=== PATIENT | male | born 1970 | race Caucasian/White ===

== ENCOUNTER 2016-06-27 10:51 | Emergency (ER) | payer OTHER ==
[~2016-06-27] VITALS: Ht 177.8 cm; Wt 71.5 kg
[~2016-06-27 10:51] MED LIST: BACT800T5 PO; HYDR-3534 PO
[2016-06-27 10:56] VITALS: BP 116/90; PULSE 102; RESP 16; TEMP 97.9; O2SAT 97
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
[2016-06-27] MEDS ORDERED: NAPR500T PO (12:31)
[2016-06-27] MEDS ORDERED: ROBA750T PO (12:31)
[2016-07-28] MEDS ORDERED: AMLO10TA2 PO (16:35)
[2016-07-28] MEDS ORDERED: CIPR-9 PO (16:45)
== END 2016-06-27 12:52 | disposition home or self-care (01) ==
LOC: PHEFT 10:51
DX: S20.211A Contusion of right front wall of thorax, initial encounter (principal); M25.461 Effusion, right knee; M25.561 Pain in right knee; F17.210 Nicotine dependence, cigarettes, uncomplicated; F10.10 Alcohol abuse, uncomplicated; Y35.93XA Legal intervention, means unspecified, suspect injured, initial encounter
CPT/HCPCS: 71101; 73564; 94150; 99283; E0113; L1830

== ENCOUNTER 2016-07-13 09:08 | Emergency (ER) | payer OTHER ==
[~2016-07-13] VITALS: Ht 177.8 cm; Wt 69.3 kg
[~2016-07-13 09:08] MED LIST changes: -BACT800T5 PO; -HYDR-3534 PO; +NAPR500T PO; +ROBA750T PO
[2016-07-13 09:21] VITALS: BP 118/86; PULSE 117; RESP 16; TEMP 98.3; O2SAT 98
[2016-07-13 10:00] VITALS: O2SAT 98
[2016-07-13] MEDS ORDERED: TETANUS/DIPHTHERIA TOXOID ADULT 0.5 ML VIAL IM ONE (10:15)
[2016-07-13] MEDS ORDERED: HYDROmorphone HCL PF 1 MG/ML VIAL IV PUSH ONE (10:15)
[2016-07-13] MEDS ORDERED: VANCOMYCIN INJ 1,050 MG in SODIUM CHLOR 0.9% 250 ML INJ 250 ML IV ONE (10:15)
[2016-07-13] MEDS ORDERED: SODIUM CHLOR 0.9% 1000 ML INJ 1,000 ML IV ONE (10:15)
[2016-07-13 10:32] LABS: AUTOMATED NEUTROPHIL # 12.8 TH/MM3 (1.8-7.7); BASOPHIL # 0.3 TH/MM3 (0-0.2); BASOPHIL % 1.7 % (0.0-2.0); EOSINOPHIL # 0.1 TH/MM3 (0-0.4); EOSINOPHIL % 0.6 % (0.0-4.0); HEMATOCRIT 44.1 % (39.0-51.0); LYMPH % 7.8 % (9.0-44.0); LYMPHOCYTE # 1.2 TH/MM3 (1.0-4.8); MEAN CELL VOLUME 93.3 FL (80.0-100.0); MEAN CORPUSCULAR HEMOGLOBIN 31.2 PG (27.0-34.0); MEAN CORPUSCULAR HGB CONC 33.4 % (32.0-36.0); MONO % 9.4 % (0.0-8.0); NEUT % 80.5 % (16.0-70.0); PLATELET COUNT 194 TH/MM3 (150-450); RED BLOOD COUNT 4.72 MIL/MM3 (4.50-5.90); RED CELL DISTRIBUTION WIDTH 12.9 % (11.6-17.2); WHITE BLOOD COUNT 15.9 TH/MM3 (4.0-11.0)
[2016-07-13 10:40] LABS: HEMO FLAGS DIFF FINAL
[2016-07-13 10:41] LABS: CHLORIDE 104 MEQ/L (98-107); SODIUM (NA) 140 MEQ/L (136-145)
[2016-07-13 10:45] LABS: ANION GAP 9 MEQ/L (5-15); BICARBONATE 27.2 MEQ/L (21.0-32.0); BLOOD UREA NITROGEN 13 MG/DL (7-18)
[2016-07-13 10:48] LABS: ALT (GPT) 14 U/L (12-78); AST (GOT) 21 U/L (15-37); GLOMERULAR FILTRATION RATE 73 ML/MIN (>89)
[2016-07-13 10:50] LABS: TOTAL BILIRUBIN ADULT 0.6 MG/DL (0.2-1.0)
[2016-07-13 10:51] LABS: ALKALINE PHOSPHATASE 64 U/L (45-117)
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
--- NOTE | 2016-07-13 10:57 | RADHPO ---
EXAM DATE/TIME: 07/13/2016 10:13 [facility] COMPARISON: No previous studies available for comparison. INDICATIONS : Right foot pain and swelling, laceration on 5th digit, dropped a door on foot. MEDICAL HISTORY : None. SURGICAL HISTORY : None. ENCOUNTER: Initial ACUITY: 4 - 6 days PAIN SCORE: 4/10 LOCATION: Right foot FINDINGS: Minimal soft tissue swelling is evident with the lateral side of the foot. There is no foreign body or fracture.. The calcaneus is intact. Bony mineralization is normal. CONCLUSION: Negative for fracture, minimal soft tissue swelling. Gaston Sagastume MD FACR on July 13, 2016 at 10:54 Board Certified Radiologist. This report was verified electronically.
--- NOTE | 2016-07-13 10:58 | RADHPO ---
EXAM DATE/TIME: 07/13/2016 10:14 [facility] COMPARISON: No previous studies available for comparison. INDICATIONS : Foreign body, stepped on glass yesterday, lateral side of left foot. MEDICAL HISTORY : None. SURGICAL HISTORY : None. ENCOUNTER: Initial ACUITY: 2 days PAIN SCORE: 3/10 LOCATION: Left lateral foot FINDINGS: There is no radiopaque foreign body or fracture identified. CONCLUSION: Negative for fracture or foreign body. Glass can be radiolucent. Gaston Sagastume MD FACR on July 13, 2016 at 10:56 Board Certified Radiologist. This report was verified electronically.
[2016-07-13 11:57] VITALS: BP 106/71; PULSE 74; RESP 16; O2SAT 100
[2016-07-28] MEDS ORDERED: AMLO10TA2 PO (16:35)
[2016-07-28] MEDS ORDERED: CIPR-9 PO (16:45)
== END 2016-07-13 12:37 | disposition home or self-care (01) ==
LOC: PHED 09:08
DX: L03.115 Cellulitis of right lower limb (principal); S91.311A Laceration without foreign body, right foot, initial encounter; F17.210 Nicotine dependence, cigarettes, uncomplicated; W20.8XXA Other cause of strike by thrown, projected or falling object, initial encounter; Y93.9 Activity, unspecified; Y92.9 Unspecified place or not applicable; R00.0 Tachycardia, unspecified
CPT/HCPCS: 73620; 80053; 83605; 85025; 87040; 96361; 96365; 96375; 99285; J1170; J3370; J7030; J7050

== ENCOUNTER 2016-07-13 18:34 | Inpatient (IN) | payer OTHER ==
[~2016-07-13] VITALS: Ht 177.8 cm; Wt 76.4 kg
[2016-07-13 18:38] VITALS: BP 125/74; PULSE 130; RESP 20; TEMP 99.1; O2SAT 95
[2016-07-13] MEDS ORDERED: SODIUM CHLOR 0.9% 1000 ML INJ 1,000 ML IV ONE ×2 (23:00)
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
[2016-07-13 23:19] VITALS: BP 117/55; PULSE 103; RESP 20; TEMP 99.9; O2SAT 96
[2016-07-13] MEDS: PIPERACIL-TAZO 4.5 GM PREMIX 100 ML IV SCH (23:38)
[2016-07-14] MEDS ORDERED: ONDANSETRON HCL 4 MG/2 ML VIAL IV PUSH ONE
[2016-07-14] MEDS ORDERED: IBUPROFEN 600 MG TAB PO ONE
[2016-07-14] MEDS ORDERED: MORPHINE SULFATE 4 MG/ML INJ IV PUSH ONE
[2016-07-14 00:13] LABS: AUTOMATED NEUTROPHIL # 14.6 TH/MM3 (1.8-7.7); BASOPHIL # 0.1 TH/MM3 (0-0.2); BASOPHIL % 0.3 % (0.0-2.0); EOSINOPHIL % 0.2 % (0.0-4.0); HEMATOCRIT 36.4 % (39.0-51.0); HEMO FLAGS DIFF FINAL; LYMPH % 5.5 % (9.0-44.0); LYMPHOCYTE # 0.9 TH/MM3 (1.0-4.8); MEAN CELL VOLUME 91.4 FL (80.0-100.0); MEAN CORPUSCULAR HEMOGLOBIN 31.7 PG (27.0-34.0); MEAN CORPUSCULAR HGB CONC 34.6 % (32.0-36.0); MONO % 8.5 % (0.0-8.0); NEUT % 85.5 % (16.0-70.0); PLATELET COUNT 167 TH/MM3 (150-450); RED BLOOD COUNT 3.98 MIL/MM3 (4.50-5.90); RED CELL DISTRIBUTION WIDTH 12.8 % (11.6-17.2); WHITE BLOOD COUNT 17.1 TH/MM3 (4.0-11.0)
[2016-07-14] MEDS: VANCOMYCIN INJ 1,500 MG in SODIUM CHLORID 0.9% 500 ML INJ 500 ML IV SCH ×3 (01:40→22:19)
[2016-07-14] MEDS ORDERED: LORazepam 2 MG TAB PO PRN (01:45)
[2016-07-14] MEDS ORDERED: FLUMAZENIL 0.5 MG/5 ML VIAL IV PUSH PRN (01:45)
[2016-07-14] MEDS ORDERED: LORazepam 1 MG TAB PO PRN (01:45)
[2016-07-14] MEDS ORDERED: SODIUM CHLORIDE 0.9% FLUSH 5 ML FLUSH FLUSH PRN (01:45)
[2016-07-14] MEDS ORDERED: LORazepam 2 MG/ML VIAL IV PUSH PRN ×4 (01:45)
[2016-07-14] MEDS ORDERED: Vancomycin Consult Pharmacy 1 EA OTHER SCH (01:45)
[2016-07-14] MEDS ORDERED: NALOXONE HCL 0.4 MG/ML AMP IV PRN (01:45)
[2016-07-14] MEDS ORDERED: SENNOSIDES 8.6 MG TAB PO PRN (01:45)
[2016-07-14] MEDS ORDERED: ONDANSETRON HCL 4 MG/2 ML VIAL IVP PRN (01:45)
[2016-07-14] MEDS ORDERED: ACETAMINOPHEN 325 MG TAB PO PRN ×2 (01:45)
--- NOTE | 2016-07-14 01:50 | HHI.HP ---
[facility] No Primary Care Physician Admission Diagnosis right foot and lower leg cellulitis Diagnoses: Chief Complaint: Foot pain/ swelling Travel History International Travel<30 Days: No Contact w/Intl Traveler <30 Da: No Traveled to Known Affected Are: No Sepsis Criteria SIRS Criteria (2 or more): Heart rate over 90, WBC > 51337, < 4000 or > 10% bands Sepsis Criteria (SIRS+source): Infect source susp/known Criteria Outcome: Meets sepsis criteria History of Present Illness The patient is a 45-year-old male with a history of alcohol abuse who presented to the hospital with right foot swelling for the past 4 days. He says that about 4 days ago he was carrying a door and then dropped it on his foot. He was wearing flip-flops at that time. He had significant pain that he described as a burning sensation in that foot. At first it started as swelling and pain in between his pinky toe and the adjacent toe but he said over the past few days it has started to spread to involve all toes and started traveling up the benson. He has noted pus leaking from the wound that he describes as red and white in color. 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 He's noticed a fever as high as 99. He has had some associated nausea with the fevers. He went to the [facility] earlier in the day and decided to leave the hospital because he had to return a bike to somebody. He says his foot feels better when he has it elevated. He has been ambulating with crutches or just hopping along if he didn't have the crutches. Review of Systems Constitutional: COMPLAINS OF: Fever Cardiovascular: COMPLAINS OF: Lower Extremity Edema Gastrointestinal: COMPLAINS OF: Diarrhea, Nausea Musculoskeletal: COMPLAINS OF: Joint pain, Muscle aches, Joint Swelling Integumentary: COMPLAINS OF: Abnormal pigmentation, Rash Hematologic/lymphatic: COMPLAINS OF: Bruising, Lymphadenopathy Neurologic: COMPLAINS OF: Abnormal gait, Paresthesias, Poor Balance Past Family Social History Past Medical History Alcohol abuse Allergies: Coded Allergies: No Known Allergies (Verified , 07/13/16) Active Ordered Medications Current Medications Medications (Trade) Dose Ordered Sig/Angella Route Start Time Stop Time Status Last Admin Vancomycin HCl 1500 mg/Sodium Chloride 515 ml @ 257.5 mls/ hr Q12H IV 07/13/16 23:00 07/14/16 01:40 Piperacillin Sod/ Tazobactam Sod 100 ml @ 200 mls/hr Q6H IV 07/13/16 23:00 07/13/16 23:38 Pharmacy Profile Note 0 ml @ 0 mls/hr UNSCH OTHER 07/14/16 01:45 UNV (NS 1000 ml Inj) 1,000 ml @ 100 mls/hr Q10H IV 07/14/16 01:34 07/14/16 21:33 UNV (NS Flush) 2 ml UNSCH PRN FLUSH 07/14/16 01:45 UNV (NS Flush) 2 ml BID FLUSH 07/14/16 09:00 UNV (Tylenol) 650 mg Q4H PRN PO 07/14/16 01:45 UNV (Zofran Inj) 4 mg Q6H PRN IVP 07/14/16 01:45 UNV (Colace) 100 mg Q12H PO 07/14/16 01:45 UNV (Senokot) 17.2 mg Q12H PRN PO 07/14/16 01:45 UNV (Lovenox Inj) 40 mg Q24H SQ 07/14/16 01:45 UNV (Tylenol) 650 mg Q6H PRN PO 07/14/16 01:45 UNV (Roxicodone) 10 mg Q4H PRN PO 07/14/16 01:45 UNV (Morphine Inj) 4 mg Q1H PRN IV 07/14/16 01:45 UNV (Roxicodone) 5 mg Q4H PRN PO 07/14/16 01:45 UNV (Narcan Inj) 0.4 mg UNSCH PRN IV 07/14/16 01:45 UNV (Romazicon Inj) 0.2 mg Q1M PRN IV PUSH 07/14/16 01:45 07/14/16 01:50 UNV (Ativan) 1 mg Q4H PRN PO 07/14/16 01:45 UNV (Ativan Inj) 1 mg Q4H PRN IV PUSH 07/14/16 01:45 UNV (Ativan) 2 mg Q2H PRN PO 07/14/16 01:45 UNV (Ativan Inj) 2 mg Q2H PRN IV PUSH 07/14/16 01:45 UNV (Ativan Inj) 2 mg Q1H PRN IV PUSH 07/14/16 01:45 UNV (Ativan Inj) 2 mg Q15M PRN IV PUSH 07/14/16 01:45 UNV (Vitamin B1) 100 mg DAILY PO 07/14/16 09:00 UNV Family History CAD Colon cancer Social History The patient smokes one pack per day. He binge drinks from time to time, last drink 2-3 days ago. He smokes marijuana daily. Physical Exam Vital Signs Vital Signs Date Time Temp Pulse Resp B/P Pulse Ox O2 Delivery O2 Flow Rate FiO2 07/13/16 23:19 99.9 103 20 117/55 96 Room Air 07/13/16 18:38 99.1 130 20 125/74 95 Room Air Physical Exam GENERAL: Well-developed, well-nourished in no apparent distress. HEAD: Normocephalic, atraumatic. EYES: Pupils equal round and reactive. Extraocular motions intact. No scleral icterus. No injection or drainage. ENT: Nose clear. Throat without erythema, tonsillar hypertrophy or exudate. Uvula midline. Airway patent. NECK: Trachea midline. Supple, nontender, moves head freely. No central bony tenderness or spasm. CARDIOVASCULAR: Regular rate and rhythm without murmurs, gallops, or rubs. RESPIRATORY: Clear to auscultation. Breath sounds equal bilaterally. No wheezes , rales, or rhonchi. GASTROINTESTINAL: Abdomen soft, non-tender, nondistended. No hepato-splenomegaly , or palpable masses. No guarding. EXTREMITIES: Examination of the right lower extremity reveals moderate swelling of the right foot up into the calf. The foot is red, warm and tender. There is a large area of erythema which is circled by marker to the forefoot. There is also bruising of the forefoot. This extends up the leg. There is a open draining laceration between the fourth and fifth toes. BACK: Nontender without deformity. No flank tenderness. NEUROLOGICAL: Awake, alert and oriented x 3 .Cranial nerves grossly intact. Motor and sensory grossly within normal limits. Normal speech. PSYCH: Mood and affect appropriate. Laboratory Laboratory Tests Test 07/13/16 23:40 White Blood Count 17.1 Red Blood Count 3.98 Hemoglobin 12.6 Hematocrit 36.4 Mean Corpuscular Volume 91.4 Mean Corpuscular Hemoglobin 31.7 Mean Corpuscular Hemoglobin 34.6 Concent Red Cell Distribution Width 12.8 Platelet Count 167 Mean Platelet Volume 8.3 Neutrophils (%) (Auto) 85.5 Lymphocytes (%) (Auto) 5.5 Monocytes (%) (Auto) 8.5 Eosinophils (%) (Auto) 0.2 Basophils (%) (Auto) 0.3 Neutrophils # (Auto) 14.6 Lymphocytes # (Auto) 0.9 Monocytes # (Auto) 1.5 Eosinophils # (Auto) 0.0 Basophils # (Auto) 0.1 CBC Comment DIFF FINAL Differential Comment Lactic Acid Level 0.7 Date/Time Procedure Status Source Growth 07/13/16 23:40 Gram Stain Received Wound Foot Pending 07/13/16 23:40 Wound Culture Received Wound Foot Pending Result Diagram: 07/13/16 2340 Assessment and Plan Assessment and Plan Sepsis S/t cellulitis of the RLE following an injury where a door fell on his foot. - continue vancomycin. - wound culture and gram stain, blood cultures x 2. - pain control with a bowel regimen. - if does not continue to improve would obtain MRI of right foot for further evaluation. - IVFs. - physical therapy. Alcohol abuse The pt says he tends to binge from time to time. Last drink 2-3 days prior to admission. - [facility] protocol. - seizure precautions. - thiamine. Nicotine abuse The pt smokes 1 PPD. He says he is not yet ready to quit. - cessation instruction. - nicotine patch if needed. Tachycardia Likely s/t pain. - pain control as needed. PPx: Lovenox. Code Status Full. Discussed Condition With Pt, Maynor Pickens. Physician Certification 2 Midnight Certification Type: Admission for Inpatient Services Order for Inpatient Services The services are ordered in accordance with Medicare regulations or non- Medicare payer requirements, as applicable. In the case of services not specified as inpatient-only, they are appropriately provided as inpatient services in accordance with the 2-midnight benchmark. Estimated LOS (days): 2 days is the estimated time the patient will need to remain in the hospital, assuming treatment plan goals are met and no additional complications. Post-Hospital Plan: Home Kamran Phoenix DO Jul 14, 2016 01:50
[2016-07-14 02:13] VITALS: BP 109/61; PULSE 95; RESP 20; TEMP 99.7; O2SAT 96
[2016-07-14] MEDS: DOCUSATE SODIUM 100 MG CAP PO SCH ×2 (03:25→13:45)
[2016-07-14] MEDS: ENOXAPARIN SODIUM 40 MG/0.4 ML SYRINGE SQ SCH (03:25)
[2016-07-14] MEDS: SODIUM CHLOR 0.9% 1000 ML INJ 1,000 ML IV SCH ×2 (03:26→11:34)
[2016-07-14 05:35] LABS: AUTOMATED NEUTROPHIL # 11.5 TH/MM3 (1.8-7.7); BASOPHIL % 0.4 % (0.0-2.0); EOSINOPHIL # 0.1 TH/MM3 (0-0.4); EOSINOPHIL % 0.6 % (0.0-4.0); HEMATOCRIT 33.5 % (39.0-51.0); HEMO FLAGS DIFF FINAL; LYMPH % 9.6 % (9.0-44.0); LYMPHOCYTE # 1.4 TH/MM3 (1.0-4.8); MEAN CELL VOLUME 92.5 FL (80.0-100.0); MEAN CORPUSCULAR HEMOGLOBIN 31.1 PG (27.0-34.0); MEAN CORPUSCULAR HGB CONC 33.7 % (32.0-36.0); MONO % 8.5 % (0.0-8.0); NEUT % 80.9 % (16.0-70.0); PLATELET COUNT 153 TH/MM3 (150-450); RED BLOOD COUNT 3.62 MIL/MM3 (4.50-5.90); RED CELL DISTRIBUTION WIDTH 13.1 % (11.6-17.2); WHITE BLOOD COUNT 14.2 TH/MM3 (4.0-11.0)
[2016-07-14] MEDS: PIPERACIL-TAZO 4.5 GM PREMIX 100 ML IV SCH ×4 (05:37→22:15)
[2016-07-14 06:24] LABS: BICARBONATE 24.3 MEQ/L (21.0-32.0); POTASSIUM 3.5 MEQ/L (3.5-5.1)
[2016-07-14 06:36] VITALS: BP 102/64; PULSE 71; RESP 20; TEMP 98; O2SAT 96
--- NOTE | 2016-07-14 07:42 | PD.CONS ---
History of Present Illness Service Podiatry Consult Requested By ED Reason for Consult cellulitis R foot/leg Primary Care Physician No Primary Care Physician Diagnoses: History of Present Illness 45-year-old male dropped door on foot 4 days ago and has had R foot swelling and pain. He says he was wearing flip flops and has wound with drainage. He states he has spiked a low grade fever with mild nausea. He has tried to stay off the foot with crutches due to pain. Past Family Social History Allergies: Coded Allergies: No Known Allergies (Verified , 07/13/16) Past Medical History Alcohol abuse, smoker Active Ordered Medications Current Medications Medications (Trade) Dose Ordered Sig/Angella Route Start Time Stop Time Status Last Admin Vancomycin HCl 1500 mg/Sodium Chloride 515 ml @ 257.5 mls/ hr Q12H IV 07/13/16 23:00 07/14/16 01:40 Piperacillin Sod/ Tazobactam Sod 100 ml @ 200 mls/hr Q6H IV 07/13/16 23:00 07/14/16 05:37 Pharmacy Profile Note 0 ml @ 0 mls/hr UNSCH OTHER 07/14/16 01:45 (NS 1000 ml Inj) 1,000 ml @ 100 mls/hr Q10H IV 07/14/16 01:34 07/14/16 21:33 07/14/16 03:26 (NS Flush) 2 ml UNSCH PRN FLUSH 07/14/16 01:45 (NS Flush) 2 ml BID FLUSH 07/14/16 09:00 (Tylenol) 650 mg Q4H PRN PO 07/14/16 01:45 (Zofran Inj) 4 mg Q6H PRN IVP 07/14/16 01:45 (Colace) 100 mg Q12H PO 07/14/16 01:45 07/14/16 03:25 (Senokot) 17.2 mg Q12H PRN PO 07/14/16 01:45 (Lovenox Inj) 40 mg Q24H SQ 07/14/16 02:00 07/14/16 03:25 (Tylenol) 650 mg Q6H PRN PO 07/14/16 01:45 (Roxicodone) 10 mg Q4H PRN PO 07/14/16 01:45 07/14/16 06:51 (Morphine Inj) 4 mg Q1H PRN IV 07/14/16 01:45 (Roxicodone) 5 mg Q4H PRN PO 07/14/16 01:45 (Narcan Inj) 0.4 mg UNSCH PRN IV 07/14/16 01:45 (Ativan) 1 mg Q4H PRN PO 07/14/16 01:45 (Ativan Inj) 1 mg Q4H PRN IV PUSH 07/14/16 01:45 (Ativan) 2 mg Q2H PRN PO 07/14/16 01:45 (Ativan Inj) 2 mg Q2H PRN IV PUSH 07/14/16 01:45 (Ativan Inj) 2 mg Q1H PRN IV PUSH 07/14/16 01:45 (Ativan Inj) 2 mg Q15M PRN IV PUSH 07/14/16 01:45 (Vitamin B1) 100 mg DAILY PO 07/14/16 09:00 Family History CAD Colon cancer Social History 1ppd smoker. Binge drinker, last drink 2-3 days ago. Smokes marijuana daily. Physical Exam Vital Signs Vital Signs Date Time Temp Pulse Resp B/P Pulse Ox O2 Delivery O2 Flow Rate FiO2 07/14/16 06:36 98.0 71 20 102/64 96 Room Air 07/14/16 02:13 99.7 95 20 109/61 96 Room Air 07/13/16 23:19 99.9 103 20 117/55 96 Room Air 07/13/16 18:38 99.1 130 20 125/74 95 Room Air Physical Exam R foot dorsally with ecchymosis and erythema across dorsum of foot. There is a small laceration between 4th/5th digits that appears into subQ tissue. No visible tendon/bone in wound. Copious serous drainage with small area of darkened tissue. Uncertain if ecchymotic or necrotic. Mild pain. Capillary refill present to digits. Palpable pedal pulses. No purulence noted. Laboratory Laboratory Tests Test 07/13/16 07/14/16 23:40 04:38 White Blood Count 17.1 14.2 Red Blood Count 3.98 3.62 Hemoglobin 12.6 11.3 Hematocrit 36.4 33.5 Mean Corpuscular Volume 91.4 92.5 Mean Corpuscular Hemoglobin 31.7 31.1 Mean Corpuscular Hemoglobin 34.6 33.7 Concent Red Cell Distribution Width 12.8 13.1 Platelet Count 167 153 Mean Platelet Volume 8.3 8.1 Neutrophils (%) (Auto) 85.5 80.9 Lymphocytes (%) (Auto) 5.5 9.6 Monocytes (%) (Auto) 8.5 8.5 Eosinophils (%) (Auto) 0.2 0.6 Basophils (%) (Auto) 0.3 0.4 Neutrophils # (Auto) 14.6 11.5 Lymphocytes # (Auto) 0.9 1.4 Monocytes # (Auto) 1.5 1.2 Eosinophils # (Auto) 0.0 0.1 Basophils # (Auto) 0.1 0.0 CBC Comment DIFF FINAL DIFF FINAL Differential Comment Lactic Acid Level 0.7 Sodium Level 139 Potassium Level 3.5 Chloride Level 105 Carbon Dioxide Level 24.3 Anion Gap 10 Blood Urea Nitrogen 9 Creatinine 1.06 Estimat Glomerular Filtration 76 Rate Random Glucose 113 Calcium Level 7.2 Protein Corrected Calcium 8.0 Total Protein 5.6 Date/Time Procedure Status Source Growth 07/13/16 23:40 Gram Stain Received Wound Foot Pending 07/13/16 23:40 Wound Culture Received Wound Foot Pending Result Diagram: 07/14/16 0438 07/14/168 Imaging No imaging performed at this time. Uncertain why Ordering foot xr Assessment and Plan Assessment and Plan Cellulitis R foot/leg XR R foot pending Ordering MRI stat R foot with and without contrast Continue IV antibiotics Discussed with patient he could have an underlying injury to his foot causing bruising in addition to overlying skin laceration and MRI will assist in determining severity of wound Will plan to debride wound bedside this evening. Continue betadine wet to dry dressing R foot in meantime. Jorge Valentine DPM Jul 14, 2016 07:42
--- NOTE | 2016-07-14 08:34 | RADRPT ---
EXAM DATE/TIME: 07/14/2016 07:59 [facility] COMPARISON: FOOT RIGHT LIMITED (2VWS), July 13, 2016, 10:13. INDICATIONS : Right foot pain after dropping a wooden door on foot. MEDICAL HISTORY : Smoker. SURGICAL HISTORY : None. ENCOUNTER: Initial ACUITY: 4 - 6 days PAIN SCORE: 6/10 LOCATION: Right entire foot. FINDINGS: Three views of the right foot demonstrate no fracture or dislocation. The Lisfranc joint appears inta ct. Mineralization is within normal limits and there is no significant arthropathy. No radiopaque for eign body is identified. There is marked soft tissue swelling on the dorsal aspect of the foot that i s stable to slightly increased from yesterday. CONCLUSION: Marked dorsal foot soft tissue swelling. However, no fracture is visualized. Lusi Mistry MD on July 14, 2016 at 8:30 Board Certified Radiologist. This report was verified electronically.
[2016-07-14] MEDS: THIAMINE HCL 100 MG TAB PO SCH (09:48)
[2016-07-14] MEDS: SODIUM CHLORIDE 0.9% FLUSH 5 ML FLUSH FLUSH SCH ×2 (09:48→22:04)
[2016-07-14] MEDS ORDERED: GADODIAMIDE PF 287 MG/ML 5 ML VIAL (for RAD MRI) IV ONE (11:26)
--- NOTE | 2016-07-14 12:40 | RADRPT ---
EXAM DATE/TIME: 07/14/2016 10:54 [facility] COMPARISON: FOOT RIGHT COMPLETE ([id number]), July 14, 2016, 7:59. INDICATIONS : Abscess. CONTRAST: 15 cc Omniscan (gadodiamide) IV MEDICAL HISTORY : None. SURGICAL HISTORY : None. ENCOUNTER: Initial ACUITY: 3 day PAIN SCORE: 5/10 LOCATION: Right foot TECHNIQUE: Multiplanar, multisequence MRI examination was performed without contrast and after the intravenous a dministration of gadolinium. FINDINGS: There is diffuse subcutaneous edema and swelling of the right midfoot and forefoot. An irregular flui d collection is seen dorsally of the lateral midfoot, measures roughly 10 x 27 mm in greater short ax is dimension and 29 mm proximal to distal. It is primarily subcutaneous but has a focal tongue extend ing into the dorsal aspect of the fourth interspace area at the level of the proximal phalanges of th e fourth and fifth toes. Dorsally, the superficial margin of the fluid collection is about 3 mm benea th the skin. No perceptible foreign body. There are no signal changes of the osseous structures of th e right foot to suggest osteomyelitis. CONCLUSION: Irregular abscess dorsal to the distal fourth and fifth metatarsals and with a tongue extending into the fourth interspace. Please see above. There is a surrounding broad area of cellulitis of the midfo ot and forefoot. No evidence of osteomyelitis. Luis Ballesteros MD on July 14, 2016 at 12:31 Board Certified Radiologist. This report was verified electronically.
[2016-07-14 18:15] VITALS: BP 151/78; PULSE 82; RESP 18; TEMP 96.2; O2SAT 96
[2016-07-14 20:00] VITALS: BP 127/74; PULSE 85; RESP 18; TEMP 99.3; O2SAT 93
[2016-07-15 01:00] VITALS: BP 123/76; PULSE 87; RESP 20; TEMP 98.6; O2SAT 95
[2016-07-15] MEDS: ENOXAPARIN SODIUM 40 MG/0.4 ML SYRINGE SQ SCH (03:24)
[2016-07-15] MEDS: DOCUSATE SODIUM 100 MG CAP PO SCH ×2 (03:24→13:12)
[2016-07-15 04:00] VITALS: BP 110/65; PULSE 79; RESP 18; TEMP 96.6; O2SAT 91
[2016-07-15] MEDS: PIPERACIL-TAZO 4.5 GM PREMIX 100 ML IV SCH ×2 (05:12→11:00)
[2016-07-15 08:00] VITALS: BP 100/61; PULSE 63; RESP 18; TEMP 97.2; O2SAT 93
[2016-07-15] MEDS: THIAMINE HCL 100 MG TAB PO SCH (08:39)
[2016-07-15] MEDS: SODIUM CHLORIDE 0.9% FLUSH 5 ML FLUSH FLUSH SCH ×2 (08:39→20:51)
--- NOTE | 2016-07-15 10:04 | HHI.PR ---
Subjective Remarks Follow up on right lower extremity and foot cellulitis Patient does not think his right leg cellulitis yet improved enough today, felt feverish this morning No nausea or vomiting, will continue on antibiotic, podiatry for further surgical debridement Objective Vitals Vital Signs Date Time Temp Pulse Resp B/P Pulse Ox O2 Delivery O2 Flow Rate FiO2 07/15/16 08:00 97.2 63 18 100/61 93 07/15/16 05:13 16 07/15/16 04:00 96.6 79 18 110/65 91 07/15/16 01:00 98.6 87 20 123/76 95 07/14/16 23:25 16 07/14/16 20:00 99.3 85 18 127/74 93 07/14/16 18:15 96.2 82 18 151/78 96 I/O 07/14/16 07/14/16 07/14/16 07/15/16 07/15/16 07/15/16 07:00 15:00 23:00 07:00 15:00 23:00 Intake Total 100 ml 1677 ml 1234 ml Output Total 200 ml Balance 100 ml 1677 ml 1034 ml Intake Oral 100 ml IV Total 1677 ml 1234 ml Output Urine Total 200 ml Result Diagram: 07/14/16 0438 07/14/16 0438 Imaging Last Impressions Foot MRI 07/14/16 0904 Signed Impressions: Service Date/Time: Thursday, July 14, 2016 10:54 - CONCLUSION: Irregular abscess dorsal to the distal fourth and fifth metatarsals and with a tongue extending into the fourth interspace. Please see above. There is a surrounding broad area of cellulitis of the midfoot and forefoot. No evidence of osteomyelitis. Luis Ballesteros MD Foot X-Ray 07/14/16 0000 Signed Impressions: Service Date/Time: Thursday, July 14, 2016 07:59 - CONCLUSION: Marked dorsal foot soft tissue swelling. However, no fracture is visualized. Luis Mistry MD Objective Remarks GENERAL: This is a well-nourished, well-developed patient, in no apparent distress. SKIN: No rashes, warm and dry HEAD: Atraumatic. Normocephalic. EYES: Pupils equal round and reactive. Extraocular motions intact. No scleral icterus. ENT: Nose without bleeding, or drainage, Airway patent. NECK: Trachea midline. Supple CARDIOVASCULAR: Regular rate and rhythm without murmurs, gallops, or rubs. RESPIRATORY: Fair air entry bilaterally. No wheezes, rales, or rhonchi. GASTROINTESTINAL: Abdomen soft, non-tender, nondistended. Positive bowel sounds MUSCULOSKELETAL: Lower extremity with edema and tenderness, right foot in gauze NEUROLOGICAL: Awake and alert. Moves all extremity. Normal speech.no focal neurological deficit A/P Assessment and Plan Sepsis S/t cellulitis of the RLE following an injury where a door fell on his foot. - continue vancomycin and Zosyn, consider infectious disease consultation if no significant improvement - wound culture and gram stain, blood cultures x 2. - pain control with a bowel regimen. -Consult podiatry, surgical debridement of the foot, - MRI of right foot Irregular abscess dorsal to the distal fourth and fifth metatarsals and with a tongue extending into the fourth interspace - IVFs. - physical therapy. Alcohol abuse The pt says he tends to binge from time to time. Last drink 2-3 days prior to admission. - [facility] protocol. - seizure precautions. - thiamine. Nicotine abuse The pt smokes 1 PPD. He says he is not yet ready to quit. - cessation instruction. - nicotine patch if needed. Tachycardia Likely s/t pain. - pain control as needed. PPx: Lovenox. Meka Devine MD Jul 15, 2016 10:03
[2016-07-15] MEDS: CALCIUM CARBONATE 500 MG CHEWABLE TAB CHEW SCH ×2 (10:29→20:51)
[2016-07-15] MEDS ORDERED: PHARMACY ORDERED LAB XX ONE (10:45)
[2016-07-15] MEDS ORDERED: PROPOFOL 200 MG/20 ML AMP IV ONE (11:00)
[2016-07-15] MEDS: VANCOMYCIN INJ 1,500 MG in SODIUM CHLORID 0.9% 500 ML INJ 500 ML IV SCH (11:00)
[2016-07-15] MEDS ORDERED: ONDANSETRON HCL 4 MG/2 ML VIAL IV PUSH ONE (11:00)
[2016-07-15] MEDS ORDERED: NEOSTIGMINE METHYLSULFATE 10 MG/10 ML VIAL IV PUSH ONE (11:00)
[2016-07-15] MEDS ORDERED: METOPROLOL TARTRATE 25 MG TAB PO PRN (12:00)
[2016-07-15] MEDS ORDERED: SODIUM CHLORID 0.9% 500 ML IV SCH (12:00)
[2016-07-15] MEDS ORDERED: LACTATED RINGER'S 1000 ML IV SCH (12:00)
[2016-07-15] MEDS ORDERED: INSULIN HUMAN REGULAR 1,000 UNITS/10 ML VIAL SQ PRN (12:00)
[2016-07-15 12:22] VITALS: BP 118/73; PULSE 69; RESP 20; TEMP 96.7; O2SAT 95
[2016-07-15 12:43] LABS: BICARBONATE 13.8 MEQ/L (21.0-32.0)
[2016-07-15 16:27] VITALS: BP 135/81; PULSE 70; RESP 20; TEMP 99.7; O2SAT 95
[2016-07-15] MEDS: PIPERACIL-TAZO 2.25 GM PREMIX 50 ML IV SCH ×2 (17:49→23:13)
[2016-07-15 20:28] VITALS: BP 147/79; PULSE 94; RESP 20; TEMP 99.5; O2SAT 92
[2016-07-15] MEDS ORDERED: GENTAMICIN SULFATE 80 MG/2 ML VIAL ONE (20:35)
[2016-07-15] MEDS ORDERED: LIDOCAINE HCL 2% 50 ML VIAL ONE (20:35)
[2016-07-15] MEDS ORDERED: MEPERIDINE HCL 25 MG/ML VIAL ONE (21:35)
[2016-07-15] MEDS ORDERED: DO NOT ADM ANY ANTICOAGULANT DRUGS XX PRN ×2 (21:37→22:00)
--- NOTE | 2016-07-15 21:37 | HHI.PR ---
Immediate Post Op Note Procedure Date: Jul 15, 2016 Pre Op Diagnosis: Abscess R foot Post Op Diagnosis: Same Surgeon: Jorge Valentine DPM Platform Consultant(s): staff Procedure: incision and drainage of abscess right foot Findings: consistent with diagnosis. dorsal R 4th webspace open lesion with serous drainage and dorsal skin to 4th interspace area dark red, with erythema extending to mid-calf. hot to touch. palpable pulses. incision made from opening between 4th/5th digits proximally, and wound probed approximately 6cm. Incision continued to expose area of abscess. Drainage did not appear milky/white, but was clear/serous in appearance. #15, rongeur, and curettage utilized to debride the area. Tissue appears viable and bleeding. Irrigation with 6L NS + gentamicin. Packed open with xeroform, 4x4, abd x 2, cling, rere. WBAT R foot in surgical shoe ok. Likely back to OR this weekend. Culture taken prior to irrigation. Antibiotics pending culture Additional Information: no tourniquet utilized Complications: none Specimen(s) removed: culture R foot Estimated blood loss: 10mL Anesthesia: General Drains: None IVF Tourniquet time (min at mmHg) n/a Patient to: PACU Patient Condition: Good Date/Time of Procedure: SEE SURGICAL CARE RECORD Jorge Valentine DPM Jul 15, 2016 21:37
[2016-07-15] MEDS ORDERED: fentaNYL CITRATE 250 MCG/5 ML AMP ONE (21:41)
[2016-07-15] MEDS ORDERED: MIDAZOLAM HCL 2 MG/2 ML VIAL ONE (21:41)
[2016-07-15] MEDS ORDERED: MORPHINE SULFATE 4 MG/ML INJ ONE (21:42)
[2016-07-16 00:09] VITALS: BP 128/92; PULSE 104; RESP 20; TEMP 99; O2SAT 94
[2016-07-16] MEDS: DOCUSATE SODIUM 100 MG CAP PO SCH (01:45)
[2016-07-16] MEDS: MORPHINE SULFATE 4 MG/ML INJ IV PRN ×2 (02:14→05:07)
[2016-07-16] MEDS ORDERED: ENOXAPARIN SODIUM 30 MG/0.3 ML SYRINGE SQ SCH (03:00)
[2016-07-16 04:34] VITALS: BP 109/65; PULSE 62; RESP 20; TEMP 97.4; O2SAT 95
[2016-07-16] MEDS: PIPERACIL-TAZO 2.25 GM PREMIX 50 ML IV SCH (05:08)
[2016-07-16 07:45] LABS: BASOPHIL % 0.1 % (0.0-2.0); HEMO FLAGS DIFF FINAL; LYMPH % 2.4 % (9.0-44.0); LYMPHOCYTE # 0.5 TH/MM3 (1.0-4.8); MEAN CELL VOLUME 92.7 FL (80.0-100.0); MEAN CORPUSCULAR HEMOGLOBIN 31.9 PG (27.0-34.0); MEAN CORPUSCULAR HGB CONC 34.4 % (32.0-36.0); MONO % 4.5 % (0.0-8.0); PLATELET COUNT 157 TH/MM3 (150-450); RED BLOOD COUNT 3.45 MIL/MM3 (4.50-5.90); RED CELL DISTRIBUTION WIDTH 12.9 % (11.6-17.2); WHITE BLOOD COUNT 19.4 TH/MM3 (4.0-11.0)
[2016-07-16 08:14] LABS: BICARBONATE 17.9 MEQ/L (21.0-32.0); POTASSIUM 4.2 MEQ/L (3.5-5.1)
[2016-07-16 08:33] VITALS: BP 120/73; PULSE 74; RESP 20; TEMP 96.7; O2SAT 98
[2016-07-16] MEDS: THIAMINE HCL 100 MG TAB PO SCH (09:24)
[2016-07-16] MEDS: CALCIUM CARBONATE 500 MG CHEWABLE TAB CHEW SCH (09:24)
[2016-07-16] MEDS: SODIUM CHLORIDE 0.9% FLUSH 5 ML FLUSH FLUSH SCH (09:24)
--- NOTE | 2016-07-16 09:53 | HHI.PR ---
Subjective Remarks no events overnight. Patient wants to go home, left ama. Objective Vitals Vital Signs Date Time Temp Pulse Resp B/P Pulse Ox O2 Delivery O2 Flow Rate FiO2 07/16/16 08:33 96.7 74 20 120/73 98 07/16/16 05:12 18 07/16/16 04:34 97.4 62 20 109/65 95 07/16/16 00:12 18 07/16/16 00:09 99.0 104 20 128/92 94 07/15/16 22:00 98 16 134/75 89 Nasal Cannula 4 07/15/16 21:45 94 16 133/71 71 Nasal Cannula 4 07/15/16 21:30 99.2 105 20 151/91 99 Nasal Cannula 4 07/15/16 20:28 99.5 94 20 147/79 92 07/15/16 16:27 99.7 70 20 135/81 95 07/15/16 12:22 96.7 69 20 118/73 95 I/O 07/15/16 07/15/16 07/15/16 07/16/16 07/16/16 07/16/16 07:00 15:00 23:00 07:00 15:00 23:00 Intake Total 1234 ml 240 ml 1000 ml Output Total 200 ml 700 ml 15 ml Balance 1034 ml -460 ml 985 ml Intake Oral 240 ml IV Total 1234 ml 100 ml Other 900 ml Output Urine Total 200 ml 700 ml Estimated Blood Loss 15 ml # Voids 0 # Bowel Movements 0 0 Result Diagram: 07/16/16 0642 07/16/16 0642 Imaging Last Impressions Foot MRI 07/14/16 0904 Signed Impressions: Service Date/Time: Thursday, July 14, 2016 10:54 - CONCLUSION: Irregular abscess dorsal to the distal fourth and fifth metatarsals and with a tongue extending into the fourth interspace. Please see above. There is a surrounding broad area of cellulitis of the midfoot and forefoot. No evidence of osteomyelitis. Luis Ballesteros MD Foot X-Ray 07/14/16 0000 Signed Impressions: Service Date/Time: Thursday, July 14, 2016 07:59 - CONCLUSION: Marked dorsal foot soft tissue swelling. However, no fracture is visualized. Luis Mistry MD Objective Remarks GENERAL: This is a well-nourished, well-developed patient, in no apparent distress. SKIN: No rashes, warm and dry HEAD: Atraumatic. Normocephalic. EYES: Pupils equal round and reactive. Extraocular motions intact. No scleral icterus. ENT: Nose without bleeding, or drainage, Airway patent. NECK: Trachea midline. Supple CARDIOVASCULAR: Regular rate and rhythm without murmurs, gallops, or rubs. RESPIRATORY: Fair air entry bilaterally. No wheezes, rales, or rhonchi. GASTROINTESTINAL: Abdomen soft, non-tender, nondistended. Positive bowel sounds MUSCULOSKELETAL: Lower extremity with edema and tenderness, right foot in gauze NEUROLOGICAL: Awake and alert. Moves all extremity. Normal speech.no focal neurological deficit A/P Assessment and Plan Sepsis 2/2 cellulitis/abscess of the RLE following an injury where a door fell on his foot. S/P I&D by Dr Valentine 07/15/16 - continue Zosyn. Hold vanco 07/15 as noted ROBERTO, consult infectious disease - wound culture and gram stain with MRSA and strep gr B , blood cultures x 2 are NTD. - pain control with a bowel regimen. - Consult podiatry s/p surgical debridement of the foot - MRI of right foot Irregular abscess dorsal to the distal fourth and fifth metatarsals and with a tongue extending into the fourth interspace - IVFs. - physical therapy. Acute renal failure with elevated BUN/Cr 2/2 likely vancomycin. On IVF Cr worsened 08/16 at 5.7. Will consult nephrology. Monitor kidney function Alcohol abuse The pt says he tends to binge from time to time. Last drink 2-3 days prior to admission. - [place] protocol. - seizure precautions. - thiamine. Nicotine abuse The pt smokes 1 PPD. He says he is not yet ready to quit. - cessation instruction. - nicotine patch if needed. Tachycardia Likely s/t pain. - pain control as needed. PPx: Lovenox. DC plan DC when improved and cleared by consultants Note: Patient left AMA today Yesi Novak MD Jul 16, 2016 09:53
[2016-07-16] MEDS ORDERED: NALOXONE HCL 0.4 MG/ML AMP IV PRN (22:15)
[2016-07-16] MEDS ORDERED: SODIUM CHLORIDE 0.9% FLUSH 5 ML FLUSH FLUSH PRN (22:15)
[2016-07-17] MEDS ORDERED: SODIUM CHLORIDE 0.9% FLUSH 5 ML FLUSH FLUSH SCH (09:00)
--- NOTE | 2016-07-24 07:07 | MP ---
cc: JORGE LUNA DPM DATE OF SURGERY 07/15/2016 DATE OF 1970 INDICATIONS The patient presented to the emergency department with worsening infection to the dorsal aspect of the right foot. He stated that originally he had dropped a door corner on the side of his foot and had some how attained a small scratch that subsequently got infected over a few days. The appearance did not appear to go with his story. He has a history of alcoholism, bipolar disorder and other issues and was noted to have a significant infection to the dorsolateral aspect of the right foot with increasing erythema extending up to the mid calf area, hot to the touch and not improving with IV antibiotics. I discussed with the patient that in order to save his foot, he needed to undergo incision and drainage of the abscess in the right foot. The abscess was confirmed with MRI to the area of the right fourth web space consistent with clinical exam. The patient consented for surgery and was seen in preop holding by myself, nursing staff and Anesthesia where the correct patient side and site were all confirmed to be correct in the right foot. The right foot was prepped and draped in the normal sterile fashion followed by time-outs as per hospital protocol. Attention was then directed to the right dorsal aspect of the foot in the fourth interspace and webspace area was noted to have an opening between the fourth and fifth digits with purulent drainage coming from the area and was not milky white purulence, but more of a clear serous yellow discolored drainage from the area. Using a scissor, it did plunge in deeper between those toes into the fourth web space and the interspace areas. An incision was made dorsally approximately 6 cm between the fourth and fifth digits proximally across the dorsolateral aspect of the foot to expose the area of abscess and rongeur of any nonviable tissue. There was bleeding noted to the remaining tissues and this area was irrigated with 6 liters of normal saline plus gentamicin and packed open with Xeroform, 4x4s, ABD x2, Gustavo and Daniel bandage. The patient tolerated procedure and anesthesia well. I do anticipate he will require further surgery at least times one and will likely go back to the operating room this weekend. A culture was taken prior to irrigation and antibiotics will be pending culture. He went back to the PACU with vital signs stable and vascular status intact to the remainder of the right foot. He will be weightbearing as tolerated to the right foot in a surgical shoe with likely surgery in the coming days. SURGEON Jorge Luna MD PRINT DECORATOR Staff PREOPERATIVE DIAGNOSIS Abscess right foot POSTOPERATIVE DIAGNOSIS Abscess right foot PROCEDURE Incision and drainage of abscess right foot PATHOLOGY Culture right foot ANESTHESIA General endotracheal anesthesia. The patient did have a 30-second seizure while being inducted under anesthesia. ESTIMATED BLOOD LOSS 10 mL COMPLICATIONS Seizure during induction of anesthesia. DISPOSITION Likely surgery in the coming days due to severity of infection. Jorge DUPREE/DJL /5:30 PM /6:45 AM
[2016-07-28] MEDS ORDERED: AMLO10TA2 PO (16:35)
[2016-07-28] MEDS ORDERED: CIPR-9 PO (16:45)
--- NOTE | 2016-08-11 17:33 | HHI.DS ---
Discharge Summary Admission Date Jul 13, 2016 at 23:09 Discharge Date: Jul 16, 2016 Admitting Diagnosis right foot and lower leg cellulitis (1) Sepsis due to cellulitis ICD Code: L03.90 Diagnosis: Principal (2) Noncompliance with treatment ICD Code: Z91.19 Diagnosis: Secondary (3) Renal insufficiency ICD Code: N28.9 Diagnosis: Principal (4) Cellulitis of right lower extremity ICD Code: L03.115 Diagnosis: Principal (5) Bipolar disorder ICD Code: F31.9 Diagnosis: Secondary (6) Tobacco abuse ICD Code: Z72.0 (7) Essential (primary) hypertension ICD Code: I10 (8) Abscess of right foot ICD Code: L02.611 Diagnosis: Principal Procedures cellulitis/abscess of the RLE following an injury where a door fell on his foot S/P I&D by Dr Valentine 07/15/16 Brief History - From Admission The patient is a 45-year-old male with a history of alcohol abuse who presented to the hospital with right foot swelling for the past 4 days. He says that about 4 days ago he was carrying a door and then dropped it on his foot. He was wearing flip-flops at that time. He had significant pain that he described as a burning sensation in that foot. At first it started as swelling and pain in between his pinky toe and the adjacent toe but he said over the past few days it has started to spread to involve all toes and started traveling up the benson. He has noted pus leaking from the wound that he describes as red and white in color. 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 He's noticed a fever as high as 99. He has had some associated nausea with the fevers. He went to the [facility] earlier in the day and decided to leave the hospital because he had to return a bike to somebody. He says his foot feels better when he has it elevated. He has been ambulating with crutches or just hopping along if he didn't have the crutches. Imaging Reported Meds & Active Scripts Active Cipro (Ciprofloxacin HCl) 500 Mg Tab 500 Mg PO BID Amlodipine (Amlodipine Besylate) 10 Mg Tab 10 Mg PO DAILY Clindamycin (Clindamycin HCl) 300 Mg Cap 300 Mg PO Q6H Vitamin B-1 (Thiamine HCl) 100 Mg Tab 100 Mg PO DAILY Oxycodone (Oxycodone HCl) 10 Mg Tab 10 Mg PO Q6HR PRN Metoprolol Tartrate 25 Mg Tab 25 Mg PO Q12HR PE at Discharge GENERAL: This is a well-nourished, well-developed patient, in no apparent distress. SKIN: No rashes, warm and dry HEAD: Atraumatic. Normocephalic. EYES: Pupils equal round and reactive. Extraocular motions intact. No scleral icterus. ENT: Nose without bleeding, or drainage, Airway patent. NECK: Trachea midline. Supple CARDIOVASCULAR: Regular rate and rhythm without murmurs, gallops, or rubs. RESPIRATORY: Fair air entry bilaterally. No wheezes, rales, or rhonchi. GASTROINTESTINAL: Abdomen soft, non-tender, nondistended. Positive bowel sounds MUSCULOSKELETAL: Lower extremity with edema and tenderness, right foot in gauze NEUROLOGICAL: Awake and alert. Moves all extremity. Normal speech.no focal neurological deficit Hospital Course Sepsis 2/2 cellulitis/abscess of the RLE following an injury where a door fell on his foot. S/P I&D by Dr Valentine 07/15/16 - continue Zosyn. Hold vanco 07/15 as noted ROBERTO, consult infectious disease - wound culture and gram stain with MRSA and strep gr B , blood cultures x 2 are NTD. - pain control with a bowel regimen. - Consult podiatry s/p surgical debridement of the foot - MRI of right foot Irregular abscess dorsal to the distal fourth and fifth metatarsals and with a tongue extending into the fourth interspace - IVFs. - physical therapy. Acute renal failure with elevated BUN/Cr 2/2 likely vancomycin. On IVF Cr worsened 08/16 at 5.7. Will consult nephrology. Monitor kidney function Alcohol abuse The pt says he tends to binge from time to time. Last drink 2-3 days prior to admission. - [facility] protocol. - seizure precautions. - thiamine. Nicotine abuse The pt smokes 1 PPD. He says he is not yet ready to quit. - cessation instruction. - nicotine patch if needed. Tachycardia Likely s/t pain. - pain control as needed. PPx: Lovenox. DC plan DC when improved and cleared by consultants Note: Patient left AMA 08/16/16 Pt Condition on Discharge: Stable Discharge Disposition: Discharge Home (left against medical advice) Discharge Time: <= 30 minutes Yesi Novak MD Aug 11, 2016 17:33
== END 2016-07-16 11:49 | disposition left against medical advice (07) | DRG 872 ==
LOC: NEPB 18:34 → NEDA 23:09 → NEDH 07-14 06:28 → N05B 07-14 17:57
PROVIDERS: ADMIT Hospitalist; ATTEND Hospitalist
DX: A41.9 Sepsis, unspecified organism (principal); N17.9 Acute kidney failure, unspecified; L03.115 Cellulitis of right lower limb; F10.10 Alcohol abuse, uncomplicated; F12.90 Cannabis use, unspecified, uncomplicated
CPT/HCPCS: 73630; 73720; 80048; 80202; 83605; 84155; 85025; 87015; 87070; 87102; 87116; 87205; 87206; 99284; A9579; J1580; J1650; J2175; J2250; J2270; J2405; J2543; J2710; J3010; J3370; J7030; J7040; L3260

== ENCOUNTER 2016-07-16 14:21 | Emergency (ER) | payer OTHER ==
[~2016-07-16] VITALS: Ht 180.3 cm; Wt 85.0 kg
[2016-07-16 14:22] VITALS: BP 137/82; PULSE 95; RESP 14; TEMP 98.4; O2SAT 98
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
--- NOTE | 2016-07-16 15:18 | HHI.HP ---
[facility] No Primary Care Physician Admission Diagnosis right lower extremity cellulitis, ROBERTO Diagnoses: Chief Complaint: cellulitis returned after he signed AMA today Travel History International Travel<30 Days: No Contact w/Intl Traveler <30 Da: No Traveled to Known Affected Are: No History of Present Illness Patient left AMA again today while in the ED Review of Systems Other 12 system ROS negative except as stated in HPI Past Family Social History Allergies: Coded Allergies: *MDRO Multi-Drug Resistant Organism (Verified Adverse Reaction, Unknown, ) MRSA (foot wound) - 07/13/2015 Physical Exam Vital Signs Vital Signs Date Time Temp Pulse Resp B/P Pulse Ox O2 Delivery O2 Flow Rate FiO2 07/16/16 14:22 98.4 95 14 137/82 98 Room Air Physical Exam GENERAL: This is a well-nourished, well-developed patient, in no apparent distress. SKIN: No rashes, ecchymoses or lesions. Cool and dry. HEAD: Atraumatic. Normocephalic. No temporal or scalp tenderness. EYES: Pupils equal round and reactive. Extraocular motions intact. No scleral icterus. No injection or drainage. ENT: Nose without bleeding, purulent drainage or septal hematoma. Throat without erythema, tonsillar hypertrophy or exudate. Uvula midline. Airway patent. NECK: Trachea midline. No JVD or lymphadenopathy. Supple, nontender, no meningeal signs. CARDIOVASCULAR: Regular rate and rhythm without murmurs, gallops, or rubs. RESPIRATORY: Clear to auscultation. Breath sounds equal bilaterally. No wheezes , rales, or rhonchi. GASTROINTESTINAL: Abdomen soft, non-tender, nondistended. No hepato-splenomegaly , or palpable masses. No guarding. MUSCULOSKELETAL: Extremities without clubbing, cyanosis, or edema. No joint tenderness, effusion, or edema noted. No calf tenderness. Negative Homans sign bilaterally. NEUROLOGICAL: Awake and alert. Cranial nerves II through XII intact. Motor and sensory grossly within normal limits. Five out of 5 muscle strength in all muscle groups. Normal speech. Physician Certification 2 Midnight Certification Type: Admission for Inpatient Services Order for Inpatient Services The services are ordered in accordance with Medicare regulations or non- Medicare payer requirements, as applicable. In the case of services not specified as inpatient-only, they are appropriately provided as inpatient services in accordance with the 2-midnight benchmark. Estimated LOS (days): 3 days is the estimated time the patient will need to remain in the hospital, assuming treatment plan goals are met and no additional complications. Post-Hospital Plan: Home Yesi Novak MD Jul 16, 2016 15:18
[2016-07-16] MEDS ORDERED: SODIUM CHLORIDE 0.9% FLUSH 5 ML FLUSH FLUSH PRN (15:30)
[2016-07-16] MEDS ORDERED: ONDANSETRON HCL 4 MG/2 ML VIAL IVP PRN (15:30)
[2016-07-16] MEDS ORDERED: ACETAMINOPHEN 325 MG TAB PO PRN (15:30)
[2016-07-16] MEDS ORDERED: PROCHLORPERAZINE 25 MG SUPP PR PRN (15:30)
[2016-07-16] MEDS ORDERED: BISACODYL 10 MG SUPP PR PRN (15:30)
[2016-07-16] MEDS ORDERED: TEMAZEPAM 15 MG CAP PO PRN (15:30)
[2016-07-16] MEDS ORDERED: SENNOSIDES 8.6 MG TAB PO PRN (15:30)
[2016-07-16] MEDS ORDERED: MAGNESIUM HYDROXIDE SUSP 30 ML CUP PO PRN (15:30)
[2016-07-16] MEDS ORDERED: SODIUM CHLOR 0.9% 1000 ML INJ 1,000 ML IV SCH (16:00)
--- NOTE | 2016-07-16 20:38 | PD.POD ---
Subjective Podiatric Problems s/p I&D R foot abscess Past Med/Surg/Social History Social History Smoking Status: Current Every Day Smoker Objective Vital Signs Vital Signs Date Time Temp Pulse Resp B/P Pulse Ox O2 Delivery O2 Flow Rate FiO2 07/16/16 14:22 98.4 95 14 137/82 98 Room Air Coded Allergies: *MDRO Multi-Drug Resistant Organism (Verified Adverse Reaction, Unknown, ) MRSA (foot wound) - 07/13/2015 Assessment & Plan A/P s/p I&D abscess R foot 07/15/16 Will need repeat I&D this weekend, likely Wednesday due to severe infection. If he leaves AMA, severe tissue vs limb loss likely Jorge Valentine DPM Jul 16, 2016 20:38
[2016-07-16] MEDS ORDERED: SODIUM CHLORIDE 0.9% FLUSH 5 ML FLUSH FLUSH SCH (21:00)
[2016-07-28] MEDS ORDERED: AMLO10TA2 PO (16:35)
[2016-07-28] MEDS ORDERED: CIPR-9 PO (16:45)
== END 2016-07-16 15:44 | disposition left against medical advice (07) ==
LOC: NEPB 14:21
DX: L03.115 Cellulitis of right lower limb (principal); F17.210 Nicotine dependence, cigarettes, uncomplicated
CPT/HCPCS: 99284

== ENCOUNTER 2016-07-16 20:20 | Inpatient (IN) | payer OTHER ==
[~2016-07-16] VITALS: Ht 177.8 cm; Wt 72.5 kg
[2016-07-16 21:10] VITALS: BP 152/107; PULSE 86; RESP 16; TEMP 98.8; O2SAT 100
[2016-07-16 21:37] VITALS: BP 153/99; PULSE 85; RESP 16; O2SAT 100
[2016-07-16] MEDS ORDERED: SODIUM CHLORIDE 0.9% FLUSH 5 ML FLUSH FLUSH PRN (22:15)
[2016-07-16] MEDS ORDERED: NALOXONE HCL 0.4 MG/ML AMP IV PRN (22:15)
--- NOTE | 2016-07-16 22:16 | PD ---
HPI Chief Complaint: Musculoskeletal Complaint Time Seen by Provider: 21:46 Travel History International Travel<30 days: No Contact w/Intl Traveler<30days: No Traveled to known affect area: No History of Present Illness HPI The patient was admitted around the of this month for cellulitis of the right foot. Dr. Valentine drain an abscess in this foot yesterday and the patient was on vancomycin IV. The patient signed out AMA this morning because he "freaked out". He came back to [facility] and then signed out again today because he "freaked out". He returns to [facility] and assures me he intends to stay for the treatment. The culture grew out staph aureus and it would be possible to treat him with clindamycin were he reliable patient. The patient is an alcoholic who is left AMA twice in one day and he is certainly not a reliable patient to have him go home on oral antibiotic at this time.. PFSH Past Medical History Bipolar Disorder: Yes Diminished Hearing: No Implanted Vascular Access Dvce: No Immunizations Current: Yes ?: Not Social History Alcohol Use: Yes (OCC) Tobacco Use: Yes (1 PPD) Substance Use: Yes (MARIJUANA DAILY) Allergies-Medications (Allergen,Severity, Reaction): Coded Allergies: *MDRO Multi-Drug Resistant Organism (Verified Adverse Reaction, Unknown, ) MRSA (foot wound) - 07/13/2015 Reported Meds & Prescriptions Reported Meds & Active Scripts Active No Active Prescriptions or Reported Medications Review of Systems Except as stated in HPI: all other systems reviewed are Neg Physical Exam Narrative GENERAL: Well-nourished, well-developed patient in slight apparent distress with his right foot pain. SKIN: Warm and dry. Right foot shows a significant cellulitis which goes up the right lower leg. HEAD: Normocephalic. EYES: No scleral icterus. No injection or drainage. NECK: Supple, trachea midline. No JVD or lymphadenopathy. CARDIOVASCULAR: Regular rate and rhythm without murmurs, gallops, or rubs. RESPIRATORY: Breath sounds equal bilaterally. No accessory muscle use. GASTROINTESTINAL: Abdomen soft, non-tender, nondistended. MUSCULOSKELETAL: No cyanosis, or edema. BACK: Nontender without obvious deformity. No CVA tenderness. Data Data Last Documented VS Vital Signs Date Time Temp Pulse Resp B/P Pulse Ox O2 Delivery O2 Flow Rate FiO2 1/26/17 21:37 85 16 153/99 100 07/16/16 21:10 98.8 MDM Medical Decision Making Medical Screen Exam Complete: Yes Emergency Medical Condition: Yes Medical Record Reviewed: Yes Differential Diagnosis Cellulitis right foot, draining abscess right foot, noncompliance to treatment Narrative Course This patient is an extremely noncompliant patient. He is at risk for alcohol abuse and has demonstrated his noncompliance to medical treatment by signing out AMA twice in one day. He claims that he will stay in the hospital and go with the treatment. If this patient were reliable you could conceivably be put on an outpatient antibiotics such as clindamycin. His right foot appears too severely infected at this time to be trusted to such treatment. Physician Communication Physician Communication I discussed the patient with Dr. Carrera, the patient will be admitted to her. Diagnosis Primary Impression: Cellulitis of right lower extremity Additional Impressions: Abscess of right foot Noncompliance with treatment History of alcohol abuse Admitting Information Admitting Physician Requests: Observation Scripts No Active Prescriptions or Reported Meds Jay Jay Almendarez MD Jul 16, 2016 22:16
[2016-07-16] MEDS ORDERED: SENNOSIDES 8.6 MG TAB PO PRN (22:30)
[2016-07-16] MEDS ORDERED: ONDANSETRON HCL 4 MG/2 ML VIAL IVP PRN (22:30)
[2016-07-16] MEDS: CLINDAMYCIN INJ 900 MG in SODIUM CHLORIDE 0.9% INJ 100 ML IV SCH (23:01)
[2016-07-16 23:45] VITALS: BP 162/74; PULSE 88; RESP 16; O2SAT 99
[2016-07-17 02:15] VITALS: BP 157/104; PULSE 84; RESP 18; TEMP 97.9; O2SAT 98
[2016-07-17] MEDS: CLINDAMYCIN INJ 900 MG in SODIUM CHLORIDE 0.9% INJ 100 ML IV SCH ×4 (05:00→17:00)
[2016-07-17 08:00] VITALS: BP 173/94; PULSE 74; RESP 18; TEMP 97.7; O2SAT 100
[2016-07-17] MEDS ORDERED: SODIUM CHLORIDE 0.9% FLUSH 5 ML FLUSH FLUSH SCH (09:00)
[2016-07-17] MEDS ORDERED: oxyCODONE/ACETAMINOPHEN 10 MG/325 MG TAB PO PRN (09:45)
[2016-07-17] MEDS ORDERED: oxyCODONE/ACETAMINOPHEN 7.5 MG/325 MG TAB PO PRN (09:45)
[2016-07-17] MEDS ORDERED: LORazepam 2 MG/ML VIAL IV PUSH PRN (10:00)
[2016-07-17] MEDS ORDERED: DAPTOmycin INJ 0 MG in SODIUM CHLORIDE 0.9% INJ 100 ML IV SCH (10:00)
[2016-07-17] MEDS ORDERED: HYDROmorphone HCL PF 2 MG/ML VIAL IV PUSH ONE (10:00)
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
[2016-07-17] MEDS ORDERED: NICOTINE 14 MG/24 HR PATCH TD SCH (11:00)
[2016-07-17 12:00] VITALS: BP 173/96; PULSE 77; RESP 18; TEMP 97; O2SAT 99
[2016-07-17] MEDS ORDERED: PIPERACIL-TAZO 2.25 GM PREMIX 50 ML IV SCH (12:00)
[2016-07-17] MEDS ORDERED: SODIUM BICARBONATE 8.4% INJ 50 MEQ in SODIUM CHLOR 0.45% 1000 ML INJ 1,000 ML IV SCH (12:00)
--- NOTE | 2016-07-17 12:17 | RADHPO ---
EXAM DATE/TIME: 07/17/2016 11:41 [facility] COMPARISON: No previous studies available for comparison. INDICATIONS : Abnormal labs. MEDICAL HISTORY : Methicillin-resistant Staphylococcus aureus. Chronic obstructive pulmonary disease. Sleep apnea. Bipo lar disorder. SURGICAL HISTORY : Right knee surgery. Right foot surgery. ENCOUNTER: Initial ACUITY: 1 day PAIN SCORE: 10 LOCATION: Bilateral flank MEASUREMENTS: RIGHT KIDNEY: 11.9 x 6.0 x 7.0 cm LEFT KIDNEY: 12.5 x 6.9 x 7.2 cm FINDINGS: RIGHT KIDNEY: Renal cortex is normal in thickness with mild increased echogenicity. No hydronephrosis, stone, or m ass. LEFT KIDNEY: Renal cortex is normal in thickness with mild increased echogenicity. No hydronephrosis, stone, or mass. BLADDER: Within normal limits given the degree of distension. CONCLUSION: Suggestion of mild increased echogenicity of cortex which raise the question as to parenchymal diseas e. No evidence of obstructive uropathy. Sean Chiang MD on July 17, 2016 at 12:15 Board Certified Radiologist. This report was verified electronically.
[2016-07-17] MEDS ORDERED: DAPTOmycin INJ 300 MG in SODIUM CHLORIDE 0.9% INJ 100 ML IV SCH (13:00)
[2016-07-17 14:15] LABS: POTASSIUM 3.9 MEQ/L (3.5-5.1)
[2016-07-17 14:17] LABS: BICARBONATE 21.6 MEQ/L (21.0-32.0)
--- NOTE | 2016-07-17 16:15 | HHI.IDPN ---
Note Infectious Disease Note Brief ID Note ID consult called, [place] [facility] [place], but patient is now en route [place] [facility] and going to surgery. I will see patient tomorrow. Isha Swift MD, MD Jul 17, 2016 16:15
[2016-07-17 16:45] VITALS: BP 171/92; PULSE 63; RESP 18; TEMP 99.6; O2SAT 99
[2016-07-17] MEDS ORDERED: INSULIN HUMAN REGULAR 1,000 UNITS/10 ML VIAL SQ PRN (17:00)
[2016-07-17] MEDS ORDERED: SODIUM CHLORID 0.9% 500 ML IV SCH (17:00)
[2016-07-17] MEDS ORDERED: METOPROLOL TARTRATE 25 MG TAB PO PRN (17:00)
[2016-07-17] MEDS ORDERED: LACTATED RINGER'S 1000 ML IV SCH (17:00)
[2016-07-17] MEDS ORDERED: LIDOCAINE HCL 2% 50 ML VIAL ONE (17:27)
[2016-07-17] MEDS ORDERED: LIDOCAINE HCL 1% 50 ML VIAL ONE (17:27)
[2016-07-17] MEDS ORDERED: GENTAMICIN SULFATE 80 MG/2 ML VIAL ONE (17:27)
[2016-07-17] MEDS ORDERED: REMOVE OLD NICODERM (NICOTINE) PATCH TD SCH (21:00)
[2016-07-28] MEDS ORDERED: AMLO10TA2 PO (16:35)
[2016-07-28] MEDS ORDERED: CIPR-9 PO (16:45)
== END 2016-07-17 19:34 | disposition left against medical advice (07) | DRG 603 ==
LOC: PHED 20:20 → PHEDA 22:18 → PH3A 07-17 02:08 → OBSVTOIN 07-17 09:46 → N07B 07-17 17:06
PROVIDERS: ADMIT Hospitalist; ATTEND Hospitalist
DX: L03.115 Cellulitis of right lower limb (principal); N17.9 Acute kidney failure, unspecified; Z22.330 Carrier of Group B streptococcus; F10.20 Alcohol dependence, uncomplicated; F12.90 Cannabis use, unspecified, uncomplicated; F31.9 Bipolar disorder, unspecified; Z72.0 Tobacco use; Z91.19 Patient's noncompliance with other medical treatment and regimen
CPT/HCPCS: 76775; 80048; 82550; 87205; 99284; G0378; J0878; J1580; J2543; J7120

== ENCOUNTER 2016-07-17 19:03 | Inpatient (IN) | payer OTHER ==
[~2016-07-17] VITALS: Ht 177.8 cm; Wt 73.0 kg
[2016-07-17 19:07] VITALS: BP 181/98; PULSE 80; RESP 14; TEMP 98.4; O2SAT 98
[2016-07-17 19:24] VITALS: BP 184/111; PULSE 70; RESP 16; TEMP 97.6; O2SAT 98
--- NOTE | 2016-07-17 19:39 | PD ---
HPI Chief Complaint: Skin Problem Time Seen by Provider: 19:30 Travel History International Travel<30 days: No Contact w/Intl Traveler<30days: No Traveled to known affect area: No History of Present Illness HPI This is a 45-year-old male presents to the emergency department for infection to his right foot with evidence of sepsis. Patient has left AMA 3 times now. The last was 20 minutes ago. He states this occurred approximately 8 days ago when he dropped a door on his foot. He states that 3 days after that he started to notice infection. Patient had incision and drainage of the right foot done on 07/16. Patient states he left again 20 minutes ago AGAINST MEDICAL ADVICE. He states that he was to have surgery today, but his questions were not been "answered as they should" so he left. The patient has no current fever. It does appear that he also developed acute kidney injury. Patient reports history of bipolar disorder, states he is not currently on any prescribed medications. PFSH Past Medical History Asthma: No Blood Disorders: No Bipolar Disorder: Yes Anxiety: Yes Depression: No Heart Rhythm Problems: No Cancer: No Cardiovascular Problems: No High Cholesterol: No Chemotherapy: No Chest Pain: No Congestive Heart Failure: No COPD: Yes Diabetes: No Diminished Hearing: No Endocrine: No Genitourinary: No Immune Disorder: No Implanted Vascular Access Dvce: No Musculoskeletal: No Neurologic: No Psychiatric: Yes (bipolar) Reproductive: No Respiratory: Yes Immunizations Current: Yes Sleep Apnea: Yes Thyroid Disease: No Past Surgical History Pacemaker: No Other Surgery: Yes (foot surgery) Social History Alcohol Use: Yes (OCC) Tobacco Use: Yes (1 PPD) Substance Use: Yes (MARIJUANA DAILY) Allergies-Medications (Allergen,Severity, Reaction): Coded Allergies: *MDRO Multi-Drug Resistant Organism (Verified Adverse Reaction, Unknown, ) MRSA (foot wound) - 07/13/2015 Reported Meds & Prescriptions Reported Meds & Active Scripts Active No Active Prescriptions or Reported Medications Review of Systems Except as stated in HPI: all other systems reviewed are Neg Physical Exam Narrative GENERAL: Well-developed well-nourished patient, afebrile. SKIN: Warm and dry. Right foot 2-3 in surgical wound with packing, surrounding erythema, and edema that extends up the right leg. HEAD: Normocephalic. Atraumatic. EYES: No scleral icterus. No injection or drainage. NECK: Supple, trachea midline. No JVD or lymphadenopathy. CARDIOVASCULAR: Regular rate and rhythm without murmurs, gallops, or rubs. Right pedal pulse 2+. RESPIRATORY: Breath sounds equal bilaterally. No accessory muscle use. Lung sounds are clear to auscultation. GASTROINTESTINAL: Abdomen soft, non-tender, nondistended. MUSCULOSKELETAL: No cyanosis, or edema. BACK: Nontender without obvious deformity. No CVA tenderness. Data Data Last Documented VS Vital Signs Date Time Temp Pulse Resp B/P Pulse Ox O2 Delivery O2 Flow Rate FiO2 07/17/16 19:24 97.6 70 16 184/111 98 Room Air Orders Admit Order (Ed Use Only) (07/17/16 19:46) Consult Podiatry (07/17/16 ) Consult Infectious Disease (07/17/16 ) Daptomycin Inj (Cubicin Inj) (07/19/16 12:00) Piperacil-Tazo 2.25 Gm Premix (Zosyn 2.2 (07/17/16 21:00) Nicotine 21 Mg Patch.24 Hr (Habitrol 21 (07/17/16 20:00) Lorazepam Inj (Ativan Inj) (07/17/16 20:00) Admit To Inpatient (07/17/16 ) Vital Signs (Adult) Q4H (07/17/16 19:50) Activity Oob Ad Bernice (07/17/16 19:50) Diet Npo (07/18/16 Breakfast) Sodium Chlor 0.9% 1000 Ml Inj (Ns 1000 M (07/17/16 20:00) Sodium Chloride 0.9% Flush (Ns Flush) (07/17/16 20:00) Sodium Chloride 0.9% Flush (Ns Flush) (07/17/16 21:00) Ondansetron Inj (Zofran Inj) (07/17/16 20:00) Bisacodyl Supp (Dulcolax Supp) (07/17/16 20:00) Comprehensive Metabolic Panel (07/18/16 06:00) Complete Blood Count With Diff (07/18/16 06:00) Pharmacologic Contraindication (07/17/16 19:50) Mechanical Contraindication (07/17/16 19:50) Acetaminophen (Tylenol) (07/17/16 20:00) Morphine Inj (Morphine Inj) (07/17/16 20:00) Oxycodone (Roxicodone) (07/17/16 20:00) Inpatient Certification (07/17/16 ) [facility] Medical Decision Making Medical Screen Exam Complete: Yes Emergency Medical Condition: Yes Medical Record Reviewed: Yes Differential Diagnosis Right foot cellulitis versus right foot abscess versus sepsis versus noncompliance versus ROBERTO Narrative Course 45-year-old male presents to the emergency department after leaving AMA 3 times for right foot abscess and cellulitis. He was to have surgery today by the software engineer advisor the left before having the surgery because he states "I questions were not be answered". He states he left 20 minutes ago before coming back to the emergency department. I reviewed CBC from at 6:42 AM which showed a white count of 19.4. Last BMP was completed at 2 PM today and showed a BUN of 27, creatinine of 5.30. [facility] is paged for admission. Dr. Yates accepted admission. Diagnosis Primary Impression: Abscess of right foot Additional Impressions: Cellulitis of right lower extremity Acute kidney injury Noncompliance with treatment Admitting Information Admitting Physician Requests: Admit Scripts No Active Prescriptions or Reported Meds Korin Acosta Jul 17, 2016 19:39
--- NOTE | 2016-07-17 19:55 | HHI.HP ---
[facility] No Primary Care Physician Admission Diagnosis right foot abscess/cellulitis; ROBERTO Diagnoses: (1) Abscess of right foot Diagnosis: Principal (2) Cellulitis of right lower extremity Diagnosis: Principal (3) Non-compliance Diagnosis: Principal (4) Renal insufficiency Diagnosis: Principal (5) Bipolar disorder Diagnosis: Principal (6) Alcohol abuse Diagnosis: Principal (7) Tobacco abuse Diagnosis: Principal Travel History International Travel<30 Days: No Contact w/Intl Traveler <30 Da: No Traveled to Known Affected Are: No History of Present Illness This is a 45-year-old male with a PMH of Bipolar Disorder, Alcohol Abuse, Tobacco Abuse, Noncompliance and Right Foot Infection who presented to the ER w / complaints of right foot pain. Admitted three times and LEFT AMA each time. Initial admit 07/14/16 for Sepsis from Right Foot Injury/Infection, s/p eval by Dr. Valentine w/ plans for intervention, Wound Cultures 07/13/16 +MRSA and Group A Beta Strep, LEFT AMA. Admitted 07/16/16, s/p eval once again by Dr. Valentine, s/p I&D 07/16/16 however LEFT AMA. Re-admitted again 07/17/16 and LEFT AMA for a third time. Pt reports he went to smoke and they told him he couldn't come back , then on other occasion didn't trust the doctors so he left AMA. States he will stay this time, however stated similar on previous admissions. Spoke w/ Dr. Valentine, plan is for debridement likely Wednesday. Review of Systems Other ROS: 14 point review of systems otherwise negative. Past Family Social History Past Medical History PMH: Bipolar Disorder, Alcohol Abuse, Tobacco Abuse, Noncompliance and Right Foot Infection Past Surgical History PAST SURGICAL HISTORY: Foot Surgery Allergies: Coded Allergies: *MDRO Multi-Drug Resistant Organism (Verified Adverse Reaction, Unknown, ) MRSA (foot wound) - 07/13/2015 Family History PAST FAMILY HISTORY: Reviewed. No h/o DM or CAD Social History PAST SOCIAL HISTORY: Positive for alcohol abuse. Smokes 1ppd. Smokes Marijuana daily. Physical Exam Vital Signs Vital Signs Date Time Temp Pulse Resp B/P Pulse Ox O2 Delivery O2 Flow Rate FiO2 07/17/16 19:24 97.6 70 16 184/111 98 Room Air 07/17/16 19:07 98.4 80 14 181/98 98 Room Air Physical Exam PE: GENERAL: Middle-aged white male in no acute distress. Requires HEENT: PERRLA, EOMI. No scleral icterus or conjunctival pallor. No lid lag or facial droop. CARDIOVASCULAR: Regular rate and rhythm. No obvious murmurs to auscultation. No chest tenderness to palpation. RESPIRATORY: No obvious rhonchi or wheezing. Clear to auscultation. Breath sounds equal bilaterally. GASTROINTESTINAL: Abdomen soft, non-tender, nondistended. BS normal. MUSCULOSKELETAL: Right foot wound w/ packing in place, +erythema/edema. Pulses intact. NEUROLOGICAL: Awake, alert and oriented x4. No focal neurologic deficits. Moving both upper and lower extremities spontaneously. Assessment and Plan Problem List: (1) Abscess of right foot ICD Code: L02.611 Status: Acute (2) Non-compliance ICD Code: Z91.19 Status: Acute (3) Renal insufficiency ICD Code: N28.9 Status: Acute (4) Bipolar disorder ICD Code: F31.9 Status: Acute (5) Alcohol abuse ICD Code: F10.10 Status: Acute (6) Tobacco abuse ICD Code: Z72.0 Status: Acute Assessment and Plan A/P: 1. Right Foot Abscess/Infection: s/p injury w/ abscess/infection, eval by Dr. Valentine s/p I&D 07/16/16. Wound Cultures 07/13/16 +MRSA and Group A Beta Strep. LEFT AMA prior to surgery planned for today 07/17/16. Re-admit, place on IV Abx, re-consult ID, re-consult Podiatry. I spoke w/ Dr. Valentine, plan is for surgical intervention likely on Wednesday. 2. Non-Compliance: LEFT AMA x3, for leaving to smoke, for not trusting doctors. States he's going to stay this time, however said same thing on previous occasions. 3. Renal Insufficiency: Creatinine 1.06 on 07/14/16, increased throughout hospitalization, now 5.30 on 07/17/16. Check U/a, check Urine Drug Screen. IVF , Nephrology consult if no improvement and if pt stays in the hospital. 4. Alcohol Abuse: CIWA, Seizure Precautions, MVT/Thiamine/Folate replacement. 5. Tobacco Abuse: Counselled. NicoDerm, Ativan prn. 6. Bipolar Disorder: Not on medications, Ativan prn. 7. DVT Prophylaxis: Pharmacologic contraindication due to upcoming surgery. Mechanical contraindication due to injury/wound 8. Social work for d/c planning as needed. 9. Case discussed w/ ER physician at length. Physician Certification 2 Midnight Certification Type: Admission for Inpatient Services Order for Inpatient Services The services are ordered in accordance with Medicare regulations or non- Medicare payer requirements, as applicable. In the case of services not specified as inpatient-only, they are appropriately provided as inpatient services in accordance with the 2-midnight benchmark. Estimated LOS (days): 2 days is the estimated time the patient will need to remain in the hospital, assuming treatment plan goals are met and no additional complications. Post-Hospital Plan: Not yet determined Loly Yates MD Jul 17, 2016 19:55
[2016-07-17] MEDS ORDERED: ONDANSETRON HCL 4 MG/2 ML VIAL IVP PRN (20:00)
[2016-07-17] MEDS: NICOTINE 21 MG/24 HR PATCH TD SCH (20:00)
[2016-07-17] MEDS ORDERED: BISACODYL 10 MG SUPP PR PRN (20:00)
[2016-07-17] MEDS: SODIUM CHLOR 0.9% 1000 ML INJ 1,000 ML IV SCH (20:18)
[2016-07-17] MEDS: SODIUM CHLORIDE 0.9% FLUSH 5 ML FLUSH FLUSH SCH (20:19)
[2016-07-17 20:20] VITALS: BP 164/103; PULSE 78; RESP 18; O2SAT 98
[2016-07-17] MEDS: PIPERACIL-TAZO 2.25 GM PREMIX 50 ML IV SCH (20:32)
[2016-07-17] MEDS: METOPROLOL TARTRATE 25 MG TAB PO SCH (20:53)
[2016-07-17 21:28] VITALS: BP 137/81; PULSE 73; RESP 16; O2SAT 97
[2016-07-17] MEDS ORDERED: LORazepam 1 MG TAB PO PRN (22:00)
[2016-07-17] MEDS ORDERED: LORazepam 2 MG TAB PO PRN (22:00)
[2016-07-17] MEDS ORDERED: HALOPERIDOL LACTATE 5 MG/ML AMP IM PRN (22:00)
[2016-07-17] MEDS ORDERED: FLUMAZENIL 0.5 MG/5 ML VIAL IV PUSH PRN (22:00)
[2016-07-17] MEDS ORDERED: LORazepam 2 MG/ML VIAL IV PUSH PRN ×4 (22:00)
[2016-07-17 22:45] LABS: BLOOD, URINE TRACE (NEG); COMMENT (UR) CULT NOT INDICATED; CULTURE IF INDICATED CULT NOT INDICATED; GLUCOSE,URINE NEG (NEG); KETONE, URINE NEG (NEG); NITRITE,URINE NEG (NEG); URINE COLOR LIGHT-YELLOW (YELLW/STRAW)
[2016-07-17 22:52] LABS: AMPHETAMINE, URINE NEG (NEG); BARBITURATES, URINE NEG (NEG); COCAINE, URINE NEG (NEG)
[2016-07-17] MEDS: LORazepam 2 MG/ML VIAL IV PUSH PRN (22:58)
[2016-07-18] VITALS: BP 157/89; PULSE 59; RESP 18; TEMP 97.9; O2SAT 99
[2016-07-18] MEDS: THIAMINE INJ 100 MG in SODIUM CHLORIDE 0.9% INJ 100 ML IV SCH ×2 (00:15→20:56)
[2016-07-18] MEDS: MULTIVITAMIN INJ 10 ML, FOLIC ACID INJ 1 MG in SODIUM CHLORID 0.9% 500 ML INJ 500 ML IV SCH ×2 (00:15→19:53)
[2016-07-18] MEDS: LORazepam 2 MG/ML VIAL IV PUSH PRN (03:30)
[2016-07-18] MEDS: PIPERACIL-TAZO 2.25 GM PREMIX 50 ML IV SCH ×4 (03:30→19:51)
[2016-07-18 04:00] VITALS: BP 126/76; PULSE 62; RESP 18; TEMP 98.5; O2SAT 95
[2016-07-18 05:51] LABS: ANION GAP 10 MEQ/L (5-15); AST (GOT) 13 U/L (15-37); BICARBONATE 20.6 MEQ/L (21.0-32.0); BLOOD UREA NITROGEN 23 MG/DL (7-18); CHLORIDE 116 MEQ/L (98-107); GLOMERULAR FILTRATION RATE 14 ML/MIN (>89); POTASSIUM 3.6 MEQ/L (3.5-5.1); SODIUM (NA) 147 MEQ/L (136-145)
[2016-07-18 05:59] LABS: ALKALINE PHOSPHATASE 53 U/L (45-117); ALT (GPT) 13 U/L (12-78); TOTAL BILIRUBIN ADULT 0.3 MG/DL (0.2-1.0)
[2016-07-18] MEDS: SODIUM CHLOR 0.9% 1000 ML INJ 1,000 ML IV SCH ×2 (06:00→15:34)
[2016-07-18 06:36] LABS: AUTOMATED NEUTROPHIL # 7.1 TH/MM3 (1.8-7.7); BASOPHIL % 0.4 % (0.0-2.0); EOSINOPHIL # 0.3 TH/MM3 (0-0.4); EOSINOPHIL % 2.6 % (0.0-4.0); HEMATOCRIT 28.2 % (39.0-51.0); HEMO FLAGS DIFF FINAL; LYMPH % 14.8 % (9.0-44.0); LYMPHOCYTE # 1.5 TH/MM3 (1.0-4.8); MEAN CELL VOLUME 92.4 FL (80.0-100.0); MEAN CORPUSCULAR HEMOGLOBIN 32.4 PG (27.0-34.0); MEAN CORPUSCULAR HGB CONC 35.1 % (32.0-36.0); MONO % 13.7 % (0.0-8.0); NEUT % 68.5 % (16.0-70.0); PLATELET COUNT 175 TH/MM3 (150-450); RED BLOOD COUNT 3.05 MIL/MM3 (4.50-5.90); RED CELL DISTRIBUTION WIDTH 13.2 % (11.6-17.2); WHITE BLOOD COUNT 10.3 TH/MM3 (4.0-11.0)
[2016-07-18 08:00] VITALS: BP 150/88; PULSE 62; RESP 17; TEMP 97.1; O2SAT 97
[2016-07-18] MEDS: SODIUM CHLORIDE 0.9% FLUSH 5 ML FLUSH FLUSH SCH ×2 (08:15→19:54)
[2016-07-18] MEDS: NICOTINE 21 MG/24 HR PATCH TD SCH (08:16)
[2016-07-18] MEDS: METOPROLOL TARTRATE 25 MG TAB PO SCH ×2 (08:18→19:52)
[2016-07-18] MEDS: REMOVE OLD NICODERM (NICOTINE) PATCH TD SCH (08:29)
[2016-07-18] MEDS ORDERED: NALOXONE HCL 0.4 MG/ML AMP IV PUSH PRN (08:45)
--- NOTE | 2016-07-18 09:21 | PD.CONS ---
History of Present Illness Service Infectious disease Consult Requested By Dr Britta Simons Reason for Consult Evaluate patient with right foot infection Primary Care Physician No Primary Care Physician Diagnoses: History of Present Illness Patient seen and examined. Records reviewed. Patient is a 45-year-old male, initially presented to the hospital on July 13 complaining of pain and swelling on his right foot. Apparently 4 days prior to that presentation while he was carrying a door it fell on his foot. Soon afterwards he started having pain, presented to the ER and there was no fracture seen. Admission was recommended for cellulitis, but the patient did not want to get admitted. He came back that same day for worsening symptoms which included pain redness and swelling and he was admitted on July 13. Podiatry saw the patient and I and D was done, but it was felt that he would require more formal debridement. Culture of the wound had MRSA and group A strep. Patient also developed acute kidney injury, and was being worked up, however he signed out AGAINST MEDICAL ADVICE on July 16. He came back later that day, and again signed out AMA. Yesterday he presented to [facility] and got readmitted, and was being transferred to the main hospital for surgery, but apparently he signed out AGAINST MEDICAL ADVICE again. He returned this time for the same symptoms and saying that he will not leave until his problem has been addressed. There's been no fever or chills since admission. His white count has been elevated. Is complaining of pain on the right foot. Renal ultrasound did not show any obstruction. His creatinine is a little bit better today compared to previous days. His urinalysis is unremarkable. Urine for eosinophils is negative. Infectious disease consultation has been requested to evaluate the patient. Review of Systems Constitutional: DENIES: Fever, Chills Eyes: DENIES: Eye pain Ears, nose, mouth, throat: DENIES: Nasal discharge, Oral lesions, Throat pain, Ear Pain, Sinus Pain Respiratory: DENIES: Cough, Sputum production, Shortness of breath Cardiovascular: DENIES: Chest pain, Palpitations Gastrointestinal: DENIES: Abdominal pain, Diarrhea, Nausea, Vomiting Genitourinary: DENIES: Urgency, Dysuria Musculoskeletal: COMPLAINS OF: Joint pain, Joint Swelling Integumentary: DENIES: Rash Hematologic/lymphatic: COMPLAINS OF: Bruising Neurologic: DENIES: Headache Psychiatric: DENIES: Anxiety Past Family Social History Allergies: Coded Allergies: *MDRO Multi-Drug Resistant Organism (Verified Adverse Reaction, Unknown, ) MRSA (foot wound) - 07/13/2015 Past Medical History Bipolar Disorder Alcohol Abuse Tobacco Abuse Right Foot Infection Non-compliance Past Surgical History Foot surgery Active Ordered Medications Tylenol Dulcolax Daptomycin Romazicon Haldol Ativan Lopressor Morphine MVI with folate acid Nicotine patch Zofran Roxicodone Zosyn Thiamine Social History Smokes a pack of cigarettes Drinks alcohol, mostly beer occasionally hard liquor Smokes marijuana Denies IV drug use Physical Exam Vital Signs Vital Signs Date Time Temp Pulse Resp B/P Pulse Ox O2 Delivery O2 Flow Rate FiO2 07/18/16 08:00 97.1 62 17 150/88 97 07/18/16 04:00 98.5 62 18 126/76 95 07/18/16 00:00 97.9 59 18 157/89 99 07/17/16 21:28 73 16 137/81 97 Room Air 07/17/16 20:20 78 18 164/103 98 Room Air 07/17/16 19:24 97.6 70 16 184/111 98 Room Air 07/17/16 19:07 98.4 80 14 181/98 98 Room Air Physical Exam GENERAL: This is a well-nourished, well-developed male, awake and alert, not toxic appearing, in no apparent distress. SKIN: Warm and dry, no generalized rash. HEAD: Atraumatic. Normocephalic. No temporal or scalp tenderness. EYES: Vansant conjunctivae. Pupils equal round and reactive. Extraocular movements are full and intact. No scleral icterus. No injection or drainage. ENT: Nose without bleeding, or purulent drainage. Moist oral mucosa. Throat without erythema, or exudate. Uvula midline. Airway patent. NECK: Trachea midline. No JVD or lymphadenopathy. Supple, nontender, no meningeal signs. CARDIOVASCULAR: Regular rate and rhythm without murmurs, gallops, or rubs. RESPIRATORY: Clear to auscultation. Breath sounds equal bilaterally. No wheezes , rales, or rhonchi. GASTROINTESTINAL: Abdomen soft, non-tender, nondistended. Bowel sounds are present and normoactive. No hepato-splenomegaly, or palpable masses. No guarding. MUSCULOSKELETAL: Extremities without clubbing, cyanosis, or edema in the LLE. RLE is larger compared to his LLE. There is erythema and ecchymoses on dorsum of his R foot, and he has a 2 in incision between the 4th and 5th MT. the erythema goes up this his R leg and he has several ecchymotic nodules on his anterior R leg. No claribel tenderness. He has good ROM at R knee and R ankle. Negative Homans sign bilaterally. NEUROLOGICAL: Awake and alert. Cranial nerves II through XII intact. Motor and sensory grossly within normal limits. Five out of 5 muscle strength in all muscle groups. Normal speech. PSYCH: Calm and cooperative LINE: PIV with no evidence of infection Laboratory Laboratory Tests Test 07/17/16 07/18/16 22:20 04:39 Urine Color LIGHT-YELLOW Urine Turbidity CLEAR Urine pH 5.0 Urine Specific [place] 1.004 Urine Protein NEG Urine Glucose (UA) NEG Urine Ketones NEG Urine Occult Blood TRACE Urine Nitrite NEG Urine Bilirubin NEG Urine Urobilinogen LESS THAN 2.0 Urine Leukocyte Esterase NEG Urine WBC 1 Microscopic Urinalysis Comment CULT NOT INDICATED Urine Opiates Screen NEG Urine Barbiturates Screen NEG Urine Amphetamines Screen NEG Urine Benzodiazepines Screen NEG Urine Cocaine Screen NEG Urine Cannabinoids Screen NEG White Blood Count 10.3 Red Blood Count 3.05 Hemoglobin 9.9 Hematocrit 28.2 Mean Corpuscular Volume 92.4 Mean Corpuscular Hemoglobin 32.4 Mean Corpuscular Hemoglobin 35.1 Concent Red Cell Distribution Width 13.2 Platelet Count 175 Mean Platelet Volume 8.0 Neutrophils (%) (Auto) 68.5 Lymphocytes (%) (Auto) 14.8 Monocytes (%) (Auto) 13.7 Eosinophils (%) (Auto) 2.6 Basophils (%) (Auto) 0.4 Neutrophils # (Auto) 7.1 Lymphocytes # (Auto) 1.5 Monocytes # (Auto) 1.4 Eosinophils # (Auto) 0.3 Basophils # (Auto) 0.0 CBC Comment DIFF FINAL Differential Comment Sodium Level 147 Potassium Level 3.6 Chloride Level 116 Carbon Dioxide Level 20.6 Anion Gap 10 Blood Urea Nitrogen 23 Creatinine 4.62 Estimat Glomerular Filtration 14 Rate Random Glucose 94 Calcium Level 8.0 Total Bilirubin 0.3 Aspartate Amino Transf 13 (AST/SGOT) Alanine Aminotransferase 13 (ALT/SGPT) Alkaline Phosphatase 53 Total Protein 5.7 Albumin 2.1 Result Diagram: 07/18/16 0439 07/18/16 0439 Assessment and Plan Assessment and Plan IMPRESSION Infected R foot, likely had contusion hematoma and got infected, S/P I and D - C/S MRSA and GAS ROBERTO, ?due to sepsis, infection - no obstruction - urine for eos negative - UA no cast - ?due to meds Non-compliance has signed out AMA 3X Tobacco abuse ETOH abuse ? RECOMMENDATION Continue Cubicin Continue Zosyn Renal evaluation Podiatry following, further debridement hopefully if he does not sign out AMA Wound care Follow C/S Monitor clinically I will determine course and choice of Abx once work-up completed I will follow along with you Thank you for this consultation Discussed Condition With Explained plan to patient Told him that if infection progressed, that there is a risk of limb loss He stated that he will stay in the hospital and not sign out AMA (patient has signed out AMA 3 times) Isha Daniel MD Jul 18, 2016 09:21
[2016-07-18] MEDS: SODIUM CHLORIDE 0.9% FLUSH 5 ML FLUSH FLUSH PRN (09:37)
[2016-07-18] MEDS: MORPHINE SULFATE 4 MG/ML INJ IV PRN ×2 (09:37→19:54)
--- NOTE | 2016-07-18 10:51 | PD.CONS ---
[facility] Service Nephrology Consult Requested By Dr. Dasilva Reason for Consult ROBERTO Primary Care Physician No Primary Care Physician History of Present Illness This patient was initially admitted on the for right foot infection. He was seen by podiatry, underwent I & D. He was placed on Vancomycin. Vancomycin level was 40 on the . He developed ROBERTO. Trend in his serum creatinine is as follows: 1.1 : 07/14 4.96: 07/15 5.75: 07/16 5.3: 07/17 4.62: 07/18. I was consulted twice on 07/16 to see this patient, but both the times, he had left AMA before I could see him. He was admitted to [facility] yesterday, and I was consulted the third time, but apparently he left AMA again in the process of being transferred here. Review of Systems Constitutional: COMPLAINS OF: Fatigue Eyes: DENIES: Blurred vision, Diplopia Cardiovascular: DENIES: Chest pain, Palpitations, Syncope, Dyspnea on Exertion Gastrointestinal: DENIES: Abdominal pain, Black stools Musculoskeletal: COMPLAINS OF: Muscle aches Past Family Social History Allergies: Coded Allergies: *MDRO Multi-Drug Resistant Organism (Verified Adverse Reaction, Unknown, ) MRSA (foot wound) - 07/13/2015 Past Medical History Bipolar Disorder Alcohol Abuse Tobacco Abuse Right Foot Infection Non-compliance Past Surgical History Foot surgery Reported Medications Active Ordered Medications Current Medications Medications (Trade) Dose Ordered Sig/Angella Route Start Time Stop Time Status Last Admin Daptomycin 300 mg/ Sodium Chloride 100 ml @ 200 mls/hr Q48H IV 07/19/16 12:00 (Zosyn 2.25 Gm Premix) 50 ml @ 100 mls/hr Q6H IV 07/17/16 21:00 07/18/16 08:15 (Habitrol 21 Mg Patch.24 Hr) 1 patch DAILY TD 07/17/16 20:00 07/18/16 08:16 Lorazepam 1 mg 1 mg Q3H PRN IV PUSH 07/17/16 20:00 07/18/16 03:30 (NS 1000 ml Inj) 1,000 ml @ 100 mls/hr Q10H IV 07/17/16 20:00 07/18/16 06:00 (NS Flush) 2 ml UNSCH PRN FLUSH 07/17/16 20:00 07/18/16 09:37 (NS Flush) 2 ml BID FLUSH 07/17/16 21:00 07/18/16 08:15 (Zofran Inj) 4 mg Q6H PRN IVP 07/17/16 20:00 (Dulcolax Supp) 10 mg DAILY PRN UT 07/17/16 20:00 (Tylenol) 650 mg Q6H PRN PO 07/17/16 20:00 (Morphine Inj) 2 mg Q3H PRN IV 07/17/16 20:00 07/18/16 09:37 (Roxicodone) 5 mg Q4H PRN PO 07/17/16 20:00 07/18/16 08:26 Miscellaneous Information 1 DAILY TD 07/18/16 09:00 07/18/16 08:29 Metoprolol Tartrate 25 mg 25 mg Q12HR PO 07/17/16 21:00 07/18/16 08:18 Multivitamins 10 ml/Folic Acid 1 mg/Sodium Chloride 510.2 ml @ 125 mls/hr Q24H IV 07/17/16 22:00 07/22/16 21:59 07/18/16 00:15 (Thiamine Inj/NS Inj) 101 ml @ 100 mls/hr Q24H IV 07/17/16 22:00 07/20/16 21:59 07/18/16 00:15 (Vitamin B1) 100 mg DAILY PO 07/21/16 09:00 (Romazicon Inj) 0.2 mg Q1M PRN IV PUSH 07/17/16 22:00 (Ativan) 1 mg Q4H PRN PO 07/17/16 22:00 (Ativan Inj) 1 mg Q4H PRN IV PUSH 07/17/16 22:00 (Ativan) 2 mg Q2H PRN PO 07/17/16 22:00 (Ativan Inj) 2 mg Q2H PRN IV PUSH 07/17/16 22:00 (Ativan Inj) 2 mg Q1H PRN IV PUSH 07/17/16 22:00 (Ativan Inj) 2 mg Q15M PRN IV PUSH 07/17/16 22:00 (Haldol Inj) 2 mg Q15M PRN IM 07/17/16 22:00 Family History non contributory Social History Active Ordered Medications Tylenol Dulcolax Smokes a pack of cigarettes Drinks alcohol, mostly beer occasionally hard liquor Smokes marijuana Denies IV drug use Physical Exam Vital Signs Vital Signs Date Time Temp Pulse Resp B/P Pulse Ox O2 Delivery O2 Flow Rate FiO2 07/18/16 09:26 18 07/18/16 08:00 97.1 62 17 150/88 97 07/18/16 04:00 98.5 62 18 126/76 95 07/18/16 00:00 97.9 59 18 157/89 99 07/17/16 21:28 73 16 137/81 97 Room Air 07/17/16 20:20 78 18 164/103 98 Room Air 07/17/16 19:24 97.6 70 16 184/111 98 Room Air 07/17/16 19:07 98.4 80 14 181/98 98 Room Air Physical Exam GENERAL: He is alert, oriented. Complains of pain in the right foot, right leg. SKIN: Warm and dry. HEAD: Normocephalic. EYES: No scleral icterus. No injection or drainage. NECK: Supple, trachea midline. No JVD or lymphadenopathy. CARDIOVASCULAR: Regular rate and rhythm without murmurs, gallops, or rubs. RESPIRATORY: Breath sounds equal bilaterally. No accessory muscle use. GASTROINTESTINAL: Abdomen soft, non-tender, nondistended. MUSCULOSKELETAL: No cyanosis, or edema. Right foot: irregular wound/ulcer. On the benson, he has some erythema, and abrasions. BACK: Nontender without obvious deformity. No CVA tenderness. Laboratory Laboratory Tests Test 07/17/16 07/18/16 22:20 04:39 Urine Color LIGHT-YELLOW Urine Turbidity CLEAR Urine pH 5.0 Urine Specific [place] 1.004 Urine Protein NEG Urine Glucose (UA) NEG Urine Ketones NEG Urine Occult Blood TRACE Urine Nitrite NEG Urine Bilirubin NEG Urine Urobilinogen LESS THAN 2.0 Urine Leukocyte Esterase NEG Urine WBC 1 Microscopic Urinalysis Comment CULT NOT INDICATED Urine Opiates Screen NEG Urine Barbiturates Screen NEG Urine Amphetamines Screen NEG Urine Benzodiazepines Screen NEG Urine Cocaine Screen NEG Urine Cannabinoids Screen NEG White Blood Count 10.3 Red Blood Count 3.05 Hemoglobin 9.9 Hematocrit 28.2 Mean Corpuscular Volume 92.4 Mean Corpuscular Hemoglobin 32.4 Mean Corpuscular Hemoglobin 35.1 Concent Red Cell Distribution Width 13.2 Platelet Count 175 Mean Platelet Volume 8.0 Neutrophils (%) (Auto) 68.5 Lymphocytes (%) (Auto) 14.8 Monocytes (%) (Auto) 13.7 Eosinophils (%) (Auto) 2.6 Basophils (%) (Auto) 0.4 Neutrophils # (Auto) 7.1 Lymphocytes # (Auto) 1.5 Monocytes # (Auto) 1.4 Eosinophils # (Auto) 0.3 Basophils # (Auto) 0.0 CBC Comment DIFF FINAL Differential Comment Sodium Level 147 Potassium Level 3.6 Chloride Level 116 Carbon Dioxide Level 20.6 Anion Gap 10 Blood Urea Nitrogen 23 Creatinine 4.62 Estimat Glomerular Filtration 14 Rate Random Glucose 94 Calcium Level 8.0 Total Bilirubin 0.3 Aspartate Amino Transf 13 (AST/SGOT) Alanine Aminotransferase 13 (ALT/SGPT) Alkaline Phosphatase 53 Total Protein 5.7 Albumin 2.1 Result Diagram: 07/18/1643807/18/16438 Assessment and Plan Problem List: (1) Acute kidney injury Plan: UA is unremarkable. Normal sized kidneys seen in the renal US without hydronephrosis. ROBERTO is likely due to Vancomycin nephrotoxicity. Vancomycin (trough?) level was 40 on the 25th. Trough level of more than 20 is a risk factor for ROBERTO. Vancomycin has been stopped. Continue IVF. Renal function appears to be improving. No indication for dialysis. Avoid NSAIDs and other nephrotoxic agents. (2) Cellulitis of right lower extremity Plan: ID following. On Daptomycin and Zosyn. (3) Tobacco abuse Plan: Cessation was advised. (4) Alcohol abuse Plan: Needs to moderate ETOH habit. (5) Bipolar disorder (6) Essential (primary) hypertension Plan: BP is noted to be high. Monitor. He is on Metoprolol. Monitor. Regimen may need to be modified. Assessment and Plan Thanks for the consult. Shawn Castelan MD Jul 18, 2016 10:51
[2016-07-18 12:00] VITALS: BP 161/98; PULSE 63; RESP 17; TEMP 96.8; O2SAT 99
--- NOTE | 2016-07-18 14:51 | HHI.PR ---
Subjective Remarks Follow-up Right foot infection. States he is staying to complete treatment. Discussed with nephrology and RN Objective Vitals Vital Signs Date Time Temp Pulse Resp B/P Pulse Ox O2 Delivery O2 Flow Rate FiO2 07/18/16 13:45 18 07/18/16 12:00 96.8 63 17 161/98 99 07/18/16 09:42 18 07/18/16 08:00 97.1 62 17 150/88 97 07/18/16 04:00 98.5 62 18 126/76 95 07/18/16 00:00 97.9 59 18 157/89 99 07/17/16 21:28 73 16 137/81 97 Room Air 07/17/16 20:20 78 18 164/103 98 Room Air 07/17/16 19:24 97.6 70 16 184/111 98 Room Air 07/17/16 19:07 98.4 80 14 181/98 98 Room Air I/O 07/17/16 07/17/16 07/17/16 07/18/16 07/18/16 07/18/16 07:00 15:00 23:00 07:00 15:00 23:00 Intake Total 480 ml 629 ml Balance 480 ml 629 ml Intake Oral 480 ml IV Total 629 ml # Voids 2 # Bowel Movements 0 Result Diagram: 07/18/16 0439 07/18/16 0439 Objective Remarks GENERAL: Well developed, well-nourished in no distress SKIN: Warm and dry. HEAD: Atraumatic. Normocephalic. EYES: Pupils equal and round. No scleral icterus. No injection or drainage. ENT: No nasal bleeding or discharge. Mucous membranes pink and moist. NECK: Trachea midline. No JVD. CARDIOVASCULAR: Regular rate and rhythm. RESPIRATORY: No accessory muscle use. Clear to auscultation. Breath sounds equal bilaterally. GASTROINTESTINAL: Abdomen soft, non-tender, nondistended. MUSCULOSKELETAL: Extremities without clubbing, cyanosis, or edema. No obvious deformities. Dry dressing right foot NEUROLOGICAL: Awake and alert. No obvious cranial nerve deficits. Motor grossly within normal limits. Five out of 5 muscle strength in the arms and legs. Normal speech. PSYCHIATRIC: Appropriate mood and affect; insight and judgment normal. A/P Problem List: (1) Abscess of right foot ICD Code: L02.611 Status: Acute (2) Non-compliance ICD Code: Z91.19 Status: Acute (3) Renal insufficiency ICD Code: N28.9 Status: Acute (4) Bipolar disorder ICD Code: F31.9 Status: Chronic (5) Alcohol abuse ICD Code: F10.10 Status: Chronic (6) Tobacco abuse ICD Code: Z72.0 Status: Chronic Assessment and Plan 1. Right Foot Abscess/Infection: s/p injury w/ abscess/infection, eval by Dr. Valentine s/p I&D 07/16/16. Wound Cultures 07/13/16 +MRSA and Group A Beta Strep. LEFT AMA prior to surgery planned for today 07/17/16. Re-admit, place on IV Abx, re-consult ID, re-consult Podiatry. Discussed w/ Dr. Valentine, plan is for surgical intervention likely on Wednesday. 2. Non-Compliance: LEFT AMA x3, for leaving to smoke, for not trusting doctors. States he's going to stay this time, however said same thing on previous occasions. 3. Acute kidney injury likely related to vancomycin: Creatinine 1.06 on , increased throughout hospitalization, now 5.30 on 07/17/16. Avoid nephrotoxins. Discussed with nephrology 4. Alcohol Abuse: CIWA, Seizure Precautions, MVT/Thiamine/Folate replacement. 5. Tobacco Abuse: Counselled. NicoDerm, Ativan prn. 6. Bipolar Disorder: Not on medications, Ativan prn. 7. DVT Prophylaxis: Pharmacologic contraindication due to upcoming surgery. Mechanical contraindication due to injury/wound Froy Dasilva MD Jul 18, 2016 14:51
[2016-07-18 16:00] VITALS: BP 140/90; PULSE 62; RESP 16; TEMP 97.5; O2SAT 96
--- NOTE | 2016-07-18 18:19 | PD.POD ---
Subjective Podiatric Problems R foot abscess, s/p I&D 07/15/16 Past Med/Surg/Social History Social History Smoking Status: Current Every Day Smoker Objective Vital Signs Vital Signs Date Time Temp Pulse Resp B/P Pulse Ox O2 Delivery O2 Flow Rate FiO2 07/18/16 16:00 97.5 62 16 140/90 96 07/18/16 13:45 18 07/18/16 12:00 96.8 63 17 161/98 99 07/18/16 09:42 18 07/18/16 08:00 97.1 62 17 150/88 97 07/18/16 04:00 98.5 62 18 126/76 95 07/18/16 00:00 97.9 59 18 157/89 99 07/17/16 21:28 73 16 137/81 97 Room Air 07/17/16 20:20 78 18 164/103 98 Room Air 07/17/16 19:24 97.6 70 16 184/111 98 Room Air 07/17/16 19:07 98.4 80 14 181/98 98 Room Air Coded Allergies: *MDRO Multi-Drug Resistant Organism (Verified Adverse Reaction, Unknown, ) MRSA (foot wound) - 07/13/2015 Physical Exam Remarks Bandage intact. Erythema up R calf remains Assessment & Plan A/P R foot abscess, s/p I&D 07/15/16 To OR tomorrow morning for repeat I&D Was very firm with patient and discussed with patient that he is essentially signing a warrant for his leg if he leaves AMA again. He claims he understands the severity of his infection. NPO after midnight Jorge Valentine DPM Jul 18, 2016 18:19
[2016-07-18] MEDS: ACETAMINOPHEN 325 MG TAB PO PRN (19:53)
[2016-07-18 20:00] VITALS: BP 167/91; PULSE 56; RESP 21; TEMP 96.4; O2SAT 95
[2016-07-19] VITALS: BP 178/97; PULSE 52; RESP 19; TEMP 96.8; O2SAT 98
[2016-07-19 01:30] VITALS: BP 164/77; PULSE 61
[2016-07-19] MEDS: SODIUM CHLOR 0.9% 1000 ML INJ 1,000 ML IV SCH (02:00)
[2016-07-19] MEDS: PIPERACIL-TAZO 2.25 GM PREMIX 50 ML IV SCH ×4 (02:36→20:10)
[2016-07-19 05:35] LABS: AUTOMATED NEUTROPHIL # 7.1 TH/MM3 (1.8-7.7); BASOPHIL # 0.1 TH/MM3 (0-0.2); BASOPHIL % 0.5 % (0.0-2.0); EOSINOPHIL # 0.4 TH/MM3 (0-0.4); EOSINOPHIL % 3.7 % (0.0-4.0); HEMO FLAGS DIFF FINAL; LYMPH % 13.6 % (9.0-44.0); LYMPHOCYTE # 1.4 TH/MM3 (1.0-4.8); MEAN CELL VOLUME 92.4 FL (80.0-100.0); MEAN CORPUSCULAR HEMOGLOBIN 31.8 PG (27.0-34.0); MEAN CORPUSCULAR HGB CONC 34.4 % (32.0-36.0); MONO % 12.7 % (0.0-8.0); NEUT % 69.5 % (16.0-70.0); PLATELET COUNT 185 TH/MM3 (150-450); RED BLOOD COUNT 3.25 MIL/MM3 (4.50-5.90); RED CELL DISTRIBUTION WIDTH 13.3 % (11.6-17.2); WHITE BLOOD COUNT 10.2 TH/MM3 (4.0-11.0)
[2016-07-19 05:41] LABS: BICARBONATE 20.9 MEQ/L (21.0-32.0); MAGNESIUM 2.1 MG/DL (1.5-2.5); POTASSIUM 3.6 MEQ/L (3.5-5.1)
[2016-07-19] MEDS ORDERED: BUPIVACAINE HCL PF 0.25% 30 ML VIAL ONE ×2 (06:21→06:22)
[2016-07-19 08:00] VITALS: BP 168/92; PULSE 67; RESP 19; TEMP 99; O2SAT 95
[2016-07-19] MEDS: LACTATED RINGER'S 1000 ML IV SCH (08:00)
[2016-07-19] MEDS: SODIUM CHLORID 0.9% 500 ML IV SCH (08:00)
[2016-07-19] MEDS ORDERED: MIDAZOLAM HCL 2 MG/2 ML VIAL ONE (08:11)
[2016-07-19] MEDS ORDERED: fentaNYL CITRATE 250 MCG/5 ML AMP ONE (08:12)
[2016-07-19] MEDS ORDERED: NEOMYCIN/POLYMYXIN 1 ML G.U. IRRIGANT IR ONE (08:32)
[2016-07-19] MEDS: SODIUM CHLORIDE 0.9% FLUSH 5 ML FLUSH FLUSH SCH ×2 (09:00→20:10)
[2016-07-19] MEDS: REMOVE OLD NICODERM (NICOTINE) PATCH TD SCH (09:00)
[2016-07-19] MEDS ORDERED: DO NOT ADM ANY ANTICOAGULANT DRUGS XX PRN (09:23)
--- NOTE | 2016-07-19 09:24 | HHI.PR ---
Immediate Post Op Note Procedure Date: Jul 19, 2016 Pre Op Diagnosis: Abscess/infection R foot Post Op Diagnosis: same Surgeon: Jorge Valentine DPM Family Medicine Chair(s): Staff Procedure: I&D R foot with wound vac placement Findings: R dorsal lateral foot wound with necrotic base down to tendon sheath, but not exposed tendon at this time. 6cm x 4cm x 1cm depth, undermines 1cm and goes between 4th and 5th digits. Excisionally debrided all fibrous and necrotic tissue with curettage and #15 blade. All remaining tissue appeared healthy and bleeding with no residual necrotic tissue prior to wound vac placement. Small granufoam vac placed R foot at 125mmHg medium continuous setting. No leak detected. Vac functioning properly. Xeroform to lateral ankle deroofed blisters, 4x4, cast padding, and rere to R foot/ankle. Additional Information: Ordered wound vac T/Th/Sat dressing changes and needs to continue IV antibiotics. Will need wound vac upon d/c and follow up with wound care center [facility] upon d /c. Complications: none Specimen(s) removed: none Estimated blood loss: 10mL Anesthesia: General Drains: None IVF Tourniquet time (min at mmHg) n/a Patient to: PACU Patient Condition: Good Date/Time of Procedure: SEE SURGICAL CARE RECORD Jorge Valentine DPM Jul 19, 2016 09:24
[2016-07-19] MEDS ORDERED: *MEPERIDINE 25 MG INJ VIAL PERIprocedural Use ONLY ONE (09:28)
[2016-07-19] MEDS ORDERED: cloNIDine HCL 0.1 MG TAB PO PRN (10:00)
[2016-07-19] MEDS ORDERED: THIAMINE HCL 100 MG TAB PO ONE (10:00)
[2016-07-19] MEDS: MORPHINE SULFATE 4 MG/ML INJ IV PRN ×3 (10:09→23:51)
[2016-07-19] MEDS: SODIUM CHLORIDE 0.9% FLUSH 5 ML FLUSH FLUSH PRN ×3 (10:10→23:51)
[2016-07-19] MEDS: METOPROLOL TARTRATE 25 MG TAB PO SCH ×2 (10:16→20:12)
[2016-07-19] MEDS: NICOTINE 21 MG/24 HR PATCH TD SCH (10:16)
--- NOTE | 2016-07-19 11:23 | HHI.NPPN ---
Subjective Interval History Underwent debridement of right foot wound. Renal function continues to improve. Objective Data Data 07/18/16 07/19/16 19:00 07:00 Intake Total 869 ml 1967 ml Balance 869 ml 1967 ml Intake Oral 240 ml 480 ml IV Total 629 ml 1487 ml # Voids 8 3 # Bowel Movements 0 0 Vital Signs Date Time Temp Pulse Resp B/P Pulse Ox O2 Delivery O2 Flow Rate FiO2 07/19/16 09:45 97.9 58 16 147/88 95 Room Air 07/19/16 09:30 69 15 149/90 93 Room Air 07/19/16 09:23 98.2 85 15 148/89 91 Room Air 07/19/16 08:00 99.0 67 19 168/92 95 07/19/16 01:30 61 164/77 07/19/16 00:00 96.8 52 19 178/97 98 07/18/16 20:00 96.4 56 21 167/91 95 07/18/16 16:00 97.5 62 16 140/90 96 07/18/16 13:45 18 07/18/16 12:00 96.8 63 17 161/98 99 -: 07/19/16 0357 07/19/16 0357 Physical Exam General Appearance: Well Developed, No Acute Distress Neck Neck Exam: Neck Supple Pulmonary Resp Exam: Clear Bilaterally, Breath Sounds Equal, No Distress Cardiology CV Exam: Regular, Normal Sinus Rhythm, Good Perfusion Gastrointestinal/Abdomen GI Exam: Soft, Non-Tender, Bowel Sounds Present Genitourinary Exam: Clear Urine Extremeties Extremeties Remarks right foot in dressing Assessment/Plan Problem List: (1) Acute kidney injury Plan: Renal function appears to be improving. No indication for dialysis. ROBERTO likely due to Vancomycin induced nephrotoxicity. Change IVF to 1/2NS because of hypernatremia. (2) Cellulitis of right lower extremity Plan: ID following. On Daptomycin and Zosyn. 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 (3) Tobacco abuse Plan: Cessation was advised. (4) Alcohol abuse Plan: Needs to moderate ETOH habit. (5) Bipolar disorder (6) Essential (primary) hypertension Plan: BP is noted to be high. Monitor. He is on Metoprolol. Monitor. Regimen may need to be modified. Shawn Castelan MD Jul 19, 2016 11:23
[2016-07-19 12:00] VITALS: BP 125/70; PULSE 67; RESP 19; TEMP 95.1; O2SAT 96
[2016-07-19] MEDS: SODIUM CHLOR 0.45% 1000 ML INJ 1,000 ML IV SCH (12:36)
[2016-07-19] MEDS: DAPTOmycin INJ 300 MG in SODIUM CHLORIDE 0.9% INJ 100 ML IV SCH (12:40)
--- NOTE | 2016-07-19 12:54 | HHI.PR ---
Subjective Remarks Follow-up right foot infection. Tolerated procedure. Requesting increased pain medications. Discussed with RN and nephrology Objective Vitals Vital Signs Date Time Temp Pulse Resp B/P Pulse Ox O2 Delivery O2 Flow Rate FiO2 07/19/16 09:45 97.9 58 16 147/88 95 Room Air 07/19/16 09:30 69 15 149/90 93 Room Air 07/19/16 09:23 98.2 85 15 148/89 91 Room Air 07/19/16 08:00 99.0 67 19 168/92 95 07/19/16 01:30 61 164/77 07/19/16 00:00 96.8 52 19 178/97 98 07/18/16 20:00 96.4 56 21 167/91 95 07/18/16 16:00 97.5 62 16 140/90 96 07/18/16 13:45 18 I/O 07/18/16 07/18/16 07/18/16 07/19/16 07/19/16 07/19/16 07:00 15:00 23:00 07:00 15:00 23:00 Intake Total 480 ml 869 ml 240 ml 1727 ml 600 ml Output Total 25 ml Balance 480 ml 869 ml 240 ml 1727 ml 575 ml Intake Oral 480 ml 240 ml 240 ml 240 ml IV Total 629 ml 1487 ml 100 ml Other 500 ml Output Estimated Blood Loss 25 ml # Voids 2 8 1 2 # Bowel Movements 0 0 0 0 Result Diagram: 07/19/1635607/19/16356 Objective Remarks GENERAL: Well developed, well-nourished in no distress SKIN: Warm and dry. HEAD: Atraumatic. Normocephalic. EYES: Pupils equal and round. No scleral icterus. No injection or drainage. ENT: No nasal bleeding or discharge. Mucous membranes pink and moist. NECK: Trachea midline. No JVD. CARDIOVASCULAR: Regular rate and rhythm. RESPIRATORY: No accessory muscle use. Clear to auscultation. Breath sounds equal bilaterally. GASTROINTESTINAL: Abdomen soft, non-tender, nondistended. MUSCULOSKELETAL: Extremities without clubbing, cyanosis, or edema. No obvious deformities. Dry dressing right foot NEUROLOGICAL: Awake and alert. No obvious cranial nerve deficits. Motor grossly within normal limits. Five out of 5 muscle strength in the arms and legs. Normal speech. PSYCHIATRIC: Appropriate mood and affect; insight and judgment normal. Procedures I&D R foot with wound vac placement A/P Problem List: (1) Abscess of right foot ICD Code: L02.611 Status: Acute (2) Non-compliance ICD Code: Z91.19 Status: Acute (3) Renal insufficiency ICD Code: N28.9 Status: Acute (4) Bipolar disorder ICD Code: F31.9 Status: Chronic (5) Alcohol abuse ICD Code: F10.10 Status: Chronic (6) Tobacco abuse ICD Code: Z72.0 Status: Chronic Assessment and Plan 1. Right Foot Abscess/Infection: s/p injury w/ abscess/infection, eval by Dr. Valentine s/p I&D 07/16/16. Wound Cultures 07/13/16 +MRSA and Group A Beta Strep. LEFT AMA prior to surgery planned for 07/17/16. Re-admit, place on IV Abx, re- consult ID, re-consult Podiatry. I&D R foot with wound vac placement. Pain management with oxycodone which will be increased and morphine IV as needed 2. Non-Compliance: LEFT AMA x3, for leaving to smoke, for not trusting doctors. States he's going to stay this time, however said same thing on previous occasions. 3. Acute kidney injury likely related to vancomycin: Creatinine 1.06 on , increased throughout hospitalization, now 5.30 on 07/17/16. Avoid nephrotoxins. Discussed with nephrology, slowly improving on IV hydration. Repeat BMP and magnesium in the morning 4. Alcohol Abuse: CIWA, Seizure Precautions, MVT/Thiamine/Folate replacement. 5. Tobacco Abuse: Counselled. NicoDerm, Ativan prn. 6. Bipolar Disorder: Not on medications, Ativan prn. 7. Elevated BP likely secondary to pain. No history of hypertension. Continue to monitor with as needed clonidine. DVT Prophylaxis: Pharmacologic contraindication due to upcoming surgery. Mechanical contraindication due to injury/wound Froy Dasilva MD Jul 19, 2016 12:54
[2016-07-19] MEDS: FOLIC ACID 1 MG TAB PO SCH (13:10)
[2016-07-19] MEDS: MULTIVITAMIN TAB PO SCH (13:10)
[2016-07-19] MEDS ORDERED: PROPOFOL 200 MG/20 ML AMP IV ONE (13:55)
[2016-07-19] MEDS ORDERED: ONDANSETRON HCL 4 MG/2 ML VIAL IV PUSH ONE (13:55)
[2016-07-19 16:00] VITALS: BP 168/92; PULSE 55; RESP 19; TEMP 98.2; O2SAT 99
[2016-07-19] MEDS: ACETAMINOPHEN 325 MG TAB PO PRN (17:29)
[2016-07-19 20:00] VITALS: BP 143/65; PULSE 86; RESP 21; TEMP 96.6; O2SAT 96
[2016-07-20] VITALS: BP 137/86; PULSE 62; RESP 21; TEMP 97.7; O2SAT 98
[2016-07-20] MEDS: SODIUM CHLORID 0.9% 500 ML IV SCH (00:40)
[2016-07-20] MEDS: ACETAMINOPHEN 325 MG TAB PO PRN (03:16)
[2016-07-20] MEDS: PIPERACIL-TAZO 2.25 GM PREMIX 50 ML IV SCH ×2 (04:24→08:24)
[2016-07-20 05:54] LABS: BICARBONATE 20.2 MEQ/L (21.0-32.0); MAGNESIUM 1.9 MG/DL (1.5-2.5); POTASSIUM 3.5 MEQ/L (3.5-5.1)
[2016-07-20] MEDS: SODIUM CHLOR 0.45% 1000 ML INJ 1,000 ML IV SCH (07:30)
[2016-07-20 08:00] VITALS: BP 128/87; PULSE 68; RESP 16; TEMP 97.6; O2SAT 97
[2016-07-20] MEDS: LACTATED RINGER'S 1000 ML IV SCH (08:00)
[2016-07-20] MEDS: FOLIC ACID 1 MG TAB PO SCH (08:24)
[2016-07-20] MEDS: METOPROLOL TARTRATE 25 MG TAB PO SCH ×2 (08:24→20:24)
[2016-07-20] MEDS: MULTIVITAMIN TAB PO SCH (08:24)
[2016-07-20] MEDS: NICOTINE 21 MG/24 HR PATCH TD SCH (08:29)
[2016-07-20] MEDS: SODIUM CHLORIDE 0.9% FLUSH 5 ML FLUSH FLUSH SCH ×2 (08:29→20:26)
[2016-07-20] MEDS: REMOVE OLD NICODERM (NICOTINE) PATCH TD SCH (08:29)
--- NOTE | 2016-07-20 10:33 | HHI.NPPN ---
Subjective Renal Failure: Acute Interval History Lying in bed sleeping. Creatinine has improved. (Erinn Rios) Review of Systems Musculoskeletal MS: Pain/Stiffness MS Remarks right foot (Ernin Rios) Objective Data Data 07/19/16 07/20/16 19:00 07:00 Intake Total 1189 ml 635 ml Output Total 927 ml 600 ml Balance 262 ml 35 ml Intake Oral 240 ml 360 ml IV Total 449 ml 275 ml Other 500 ml Output Urine Total 900 ml 600 ml Drainage Total 2 ml 0 ml Estimated Blood Loss 25 ml # Voids 2 # Bowel Movements 0 0 Vital Signs Date Time Temp Pulse Resp B/P Pulse Ox O2 Delivery O2 Flow Rate FiO2 07/20/16 08:00 97.6 68 16 128/87 97 07/20/16 00:00 97.7 62 21 137/86 98 07/19/16 20:00 96.6 86 21 143/65 96 07/19/16 20:00 96.6 86 21 143/65 96 07/19/16 18:25 18 07/19/16 16:00 98.2 55 19 168/92 99 07/19/16 13:06 18 07/19/16 12:00 95.1 67 19 125/70 96 (Erinn Rios) -: 07/19/16 0357 07/20/16 0436 Physical Exam General Appearance: Well Developed, No Acute Distress, Comfortable, Sleeping (Erinn Rios) Neck Neck Exam: Neck Supple (Erinn Rios) Pulmonary Resp Exam: Clear Bilaterally, Breath Sounds Equal, No Distress (Erinn Rios) Cardiology CV Exam: Regular, Normal Sinus Rhythm, Good Perfusion (Erinn Rios) Gastrointestinal/Abdomen GI Exam: Soft, Non-Tender, Bowel Sounds Present (Erinn Rios) Genitourinary Exam: Clear Urine (Erinn Rios) Musculoskeletal MS Exam: Joints Intact, Normal Tone (Erinn Rios) Integumentary Skin Exam: Warm, Dry (Erinn Rios) Extremeties Extremities Exam: Pedal Pulses Palpable (Erinn Rios) Neurologic Neuro Exam: Alert, Awake, Oriented, Speech Clear, Moving All Extremities ( Erinn Rios) Psychiatric Psych Exam: Appropriate Responses (Erinn Rios) Assessment/Plan Discussed Condition With: Patient Problem List: (1) Acute kidney injury Plan: ROBERTO: vancomycin induced nephrotoxicity, the medication has been stopped Improving renal function Potassium is acceptable, c02 low, monitor for now should correct as renal function improves Na elevated, he is on 0.45% NS, continue for now encouraged oral hydration avoid nephrotoxins renal panel in am no aviles required, he is non oliguric (2) Cellulitis of right lower extremity Plan: ID following. On Daptomycin and Zosyn. Previously on vancomycin which was stopped s/p debridement on 07/19 by wafer production worker. cautious pain control (3) Tobacco abuse Plan: Cessation was advised. on nicotine patch (4) Alcohol abuse Plan: Needs to moderate ETOH habit. has CIWA protocol with Ativan available (5) Essential (primary) hypertension Plan: BP improved, he is on Metoprolol with prn clonidine Monitor. adjust medications as needed (6) Bipolar disorder (Erinn Rios) Plan Patient was seen and examined. Renal function is improving. Taper off fluids. ( Shawn Castelan MD) Erinn Rios Jul 20, 2016 10:33 Shawn Castelan MD Jul 20, 2016 11:57
--- NOTE | 2016-07-20 10:52 | HHI.IDPN ---
Subjective Subjective Remarks Notes reviewed No fever Had OR yesterday - repeat debridement, now with wound vac in place No new C/S sent Previous C/S with MRSA and GAS Good UO Creatinine slowly improving Antibiotics Cubicin Zosyn Lines PIV Past Medical History Bipolar Disorder Alcohol Abuse Tobacco Abuse Right Foot Infection Non-compliance Past Surgical History Foot surgery Allergies: Coded Allergies: *MDRO Multi-Drug Resistant Organism (Verified Adverse Reaction, Unknown, ) MRSA (foot wound) - 07/13/2016 Objective . Vital Signs Date Time Temp Pulse Resp B/P Pulse Ox O2 Delivery O2 Flow Rate FiO2 07/20/16 08:00 97.6 68 16 128/87 97 07/20/16 00:00 97.7 62 21 137/86 98 07/19/16 20:00 96.6 86 21 143/65 96 07/19/16 20:00 96.6 86 21 143/65 96 07/19/16 18:25 18 07/19/16 16:00 98.2 55 19 168/92 99 07/19/16 13:06 18 07/19/16 12:00 95.1 67 19 125/70 96 07/19/16 07/19/16 07/20/16 15:00 23:00 07:00 Intake Total 1189 ml 275 ml 360 ml Output Total 927 ml 0 ml 600 ml Balance 262 ml 275 ml -240 ml Intake Oral 240 ml 360 ml IV Total 449 ml 275 ml Other 500 ml Output Urine Total 900 ml 600 ml Drainage Total 2 ml 0 ml 0 ml Estimated Blood Loss 25 ml # Voids 2 # Bowel Movements 0 0 . Laboratory Tests Test 07/19/16 03:57 White Blood Count 10.2 TH/MM3 Red Blood Count 3.25 MIL/MM3 Hemoglobin 10.3 GM/DL Hematocrit 30.0 % Mean Corpuscular Volume 92.4 FL Mean Corpuscular Hemoglobin 31.8 PG Mean Corpuscular Hemoglobin 34.4 % Concent Red Cell Distribution Width 13.3 % Platelet Count 185 TH/MM3 Mean Platelet Volume 8.3 FL Neutrophils (%) (Auto) 69.5 % Lymphocytes (%) (Auto) 13.6 % Monocytes (%) (Auto) 12.7 % Eosinophils (%) (Auto) 3.7 % Basophils (%) (Auto) 0.5 % Neutrophils # (Auto) 7.1 TH/MM3 Lymphocytes # (Auto) 1.4 TH/MM3 Monocytes # (Auto) 1.3 TH/MM3 Eosinophils # (Auto) 0.4 TH/MM3 Basophils # (Auto) 0.1 TH/MM3 CBC Comment DIFF FINAL Differential Comment Laboratory Tests Test 07/19/16 07/20/16 03:57 04:36 Sodium Level 146 MEQ/L 145 MEQ/L Potassium Level 3.6 MEQ/L 3.5 MEQ/L Chloride Level 116 MEQ/L 114 MEQ/L Carbon Dioxide Level 20.9 MEQ/L 20.2 MEQ/L Anion Gap 9 MEQ/L 11 MEQ/L Blood Urea Nitrogen 19 MG/DL 16 MG/DL Creatinine 4.02 MG/DL 3.93 MG/DL Estimat Glomerular Filtration 16 ML/MIN 17 ML/MIN Rate Random Glucose 90 MG/DL 112 MG/DL Calcium Level 8.3 MG/DL 8.0 MG/DL Magnesium Level 2.1 MG/DL 1.9 MG/DL Physical Exam GENERAL: wake and alert, NAD. SKIN: Warm and dry, no generalized rash. HEENT: [place] conjunctivae. No scleral icterus. No injection or drainage. Moist oral mucosa. NECK: Supple, nontender, no meningeal signs. CARDIOVASCULAR: Regular rate and rhythm without murmurs, gallops, or rubs. RESPIRATORY: Clear to auscultation. Breath sounds equal bilaterally. No wheezes , rales, or rhonchi. GASTROINTESTINAL: Abdomen soft, non-tender, nondistended. Bowel sounds are present and normoactive. No hepato-splenomegaly, or palpable masses. No guarding. MUSCULOSKELETAL: Extremities without clubbing, cyanosis, or edema in the LLE. RLE is larger compared to his LLE. Wound vac on his R foot. NEUROLOGICAL: NOn-focal PSYCH: Calm and cooperative LINE: PIV with no evidence of infection Assessment & Plan Remarks IMPRESSION Infected R foot, likely had contusion hematoma and got infected, S/P I and D - C/S MRSA and GAS - S/P repeat I and D ROBERTO, ?due to sepsis, infection - no obstruction - urine for eos negative - UA no cast - ?due to meds Non-compliance has signed out AMA 3X Tobacco abuse ETOH abuse ? RECOMMENDATION Continue Cubicin Stop Zosyn Wound care Monitor clinically Isha Daniel MD Jul 20, 2016 10:52
[2016-07-20 12:00] VITALS: BP 157/93; PULSE 98; RESP 17; TEMP 96.4; O2SAT 99
--- NOTE | 2016-07-20 13:28 | HHI.PR ---
Subjective Remarks F/U ROBERTO. Voiding dw RN Objective Vitals Vital Signs Date Time Temp Pulse Resp B/P Pulse Ox O2 Delivery O2 Flow Rate FiO2 07/20/16 12:00 96.4 98 17 157/93 99 07/20/16 08:00 97.6 68 16 128/87 97 07/20/16 00:00 97.7 62 21 137/86 98 07/19/16 20:00 96.6 86 21 143/65 96 07/19/16 20:00 96.6 86 21 143/65 96 07/19/16 18:25 18 07/19/16 16:00 98.2 55 19 168/92 99 I/O 07/19/16 07/19/16 07/19/16 07/20/16 07/20/16 07/20/16 07:00 15:00 23:00 07:00 15:00 23:00 Intake Total 1727 ml 1189 ml 275 ml 360 ml Output Total 927 ml 0 ml 600 ml 25 ml Balance 1727 ml 262 ml 275 ml -240 ml -25 ml Intake Oral 240 ml 240 ml 360 ml IV Total 1487 ml 449 ml 275 ml Other 500 ml Output Urine Total 900 ml 600 ml Drainage Total 2 ml 0 ml 0 ml 25 ml Estimated Blood Loss 25 ml # Voids 2 2 # Bowel Movements 0 0 0 Result Diagram: 07/19/16 0357 07/20/16 0436 Objective Remarks GENERAL: Well developed, well-nourished in no distress SKIN: Warm and dry. HEAD: Atraumatic. Normocephalic. EYES: Pupils equal and round. No scleral icterus. No injection or drainage. ENT: No nasal bleeding or discharge. Mucous membranes pink and moist. NECK: Trachea midline. No JVD. CARDIOVASCULAR: Regular rate and rhythm. RESPIRATORY: No accessory muscle use. Clear to auscultation. Breath sounds equal bilaterally. GASTROINTESTINAL: Abdomen soft, non-tender, nondistended. MUSCULOSKELETAL: Extremities without clubbing, cyanosis, or edema. No obvious deformities. Dry dressing right foot NEUROLOGICAL: Awake and alert. No obvious cranial nerve deficits. Motor grossly within normal limits. Five out of 5 muscle strength in the arms and legs. Normal speech. PSYCHIATRIC: Appropriate mood and affect; insight and judgment normal. Procedures I&D R foot with wound vac placement A/P Problem List: (1) Abscess of right foot ICD Code: L02.611 Status: Acute (2) Non-compliance ICD Code: Z91.19 Status: Acute (3) Renal insufficiency ICD Code: N28.9 Status: Acute (4) Bipolar disorder ICD Code: F31.9 Status: Chronic (5) Alcohol abuse ICD Code: F10.10 Status: Chronic (6) Tobacco abuse ICD Code: Z72.0 Status: Chronic Assessment and Plan 1. Right Foot Abscess/Infection: s/p injury w/ abscess/infection, eval by Dr. Valentine s/p I&D 07/16/16. Wound Cultures 07/13/16 +MRSA and Group A Beta Strep. LEFT AMA prior to surgery planned for 07/17/16. Re-admit, place on IV Abx, re- consult ID, re-consult Podiatry. I&D R foot with wound vac placement. Pain management with oxycodone which will be increased and morphine IV as needed 2. Non-Compliance: LEFT AMA x3, for leaving to smoke, for not trusting doctors. States he's going to stay this time, however said same thing on previous occasions. 3. Acute kidney injury likely related to vancomycin: Creatinine 1.06 on , increased throughout hospitalization, now 5.30 on 07/17/16. Avoid nephrotoxins. Slowly improving on IV hydration. Repeat BMP and magnesium in the morning 4. Alcohol Abuse: CIWA, Seizure Precautions, MVT/Thiamine/Folate replacement. 5. Tobacco Abuse: Counselled. NicoDerm, Ativan prn. 6. Bipolar Disorder: Not on medications, Ativan prn. 7. Elevated BP likely secondary to pain. No history of hypertension. Continue to monitor with as needed clonidine. DVT Prophylaxis: Pharmacologic contraindication due to upcoming surgery. Mechanical contraindication due to injury/wound Froy Dasilva MD Jul 20, 2016 13:28
[2016-07-20 16:00] VITALS: BP 143/97; PULSE 70; RESP 17; TEMP 97.9; O2SAT 96
[2016-07-20 20:00] VITALS: BP 149/78; PULSE 59; RESP 20; TEMP 98.9; O2SAT 97
[2016-07-20] MEDS: MORPHINE SULFATE 4 MG/ML INJ IV PRN (22:24)
[2016-07-21] VITALS: BP 151/93; PULSE 50; RESP 20; TEMP 98.3; O2SAT 95
[2016-07-21] MEDS: SODIUM CHLOR 0.45% 1000 ML INJ 1,000 ML IV SCH ×2 (03:30→20:40)
[2016-07-21 06:19] LABS: BICARBONATE 24.5 MEQ/L (21.0-32.0); POTASSIUM 3.4 MEQ/L (3.5-5.1)
[2016-07-21 08:00] VITALS: BP 148/84; PULSE 52; RESP 16; TEMP 97.4; O2SAT 98
[2016-07-21] MEDS: LACTATED RINGER'S 1000 ML IV SCH (08:00)
[2016-07-21] MEDS ORDERED: POTASSIUM CHLORIDE 10 MEQ CONTROLLED RELEASE TAB PO ONE (08:45)
[2016-07-21] MEDS: NICOTINE 21 MG/24 HR PATCH TD SCH (08:58)
[2016-07-21] MEDS: FOLIC ACID 1 MG TAB PO SCH (08:58)
[2016-07-21] MEDS: METOPROLOL TARTRATE 25 MG TAB PO SCH ×2 (08:58→20:38)
[2016-07-21] MEDS: THIAMINE HCL 100 MG TAB PO SCH (08:58)
[2016-07-21] MEDS: MULTIVITAMIN TAB PO SCH (08:58)
[2016-07-21] MEDS: REMOVE OLD NICODERM (NICOTINE) PATCH TD SCH (09:00)
[2016-07-21] MEDS: SODIUM CHLORIDE 0.9% FLUSH 5 ML FLUSH FLUSH SCH ×2 (09:01→20:40)
--- NOTE | 2016-07-21 09:24 | HHI.NPPN ---
Subjective Renal Failure: Acute Interval History Renal function is better. No acute concerns. (Erinn Rios) Review of Systems Musculoskeletal MS: Pain/Stiffness MS Remarks right foot (Erinn Rios) Objective Data Data 07/20/16 07/21/16 19:00 07:00 Intake Total 1080 ml 960 ml Output Total 1375 ml 2720 ml Balance -295 ml -1760 ml Intake Oral 1080 ml 960 ml IV Total 0 ml Output Urine Total 1350 ml 2700 ml Drainage Total 25 ml 20 ml # Bowel Movements 1 Vital Signs Date Time Temp Pulse Resp B/P Pulse Ox O2 Delivery O2 Flow Rate FiO2 07/21/16 08:00 97.4 52 16 148/84 98 07/21/16 00:02 16 07/21/16 00:00 98.3 50 20 151/93 95 07/20/16 22:23 18 07/20/16 20:00 98.9 59 20 149/78 97 07/20/16 16:00 97.9 70 17 143/97 96 07/20/16 12:00 96.4 98 17 157/93 99 (Erinn Rios) -: 07/19/16 0357 07/21/16 0454 Tubes & Lines Comment wound vac (Erinn Rios) Physical Exam General Appearance: Well Developed, Well Nourished, No Acute Distress, Comfortable ( Erinn Rios) Throat Throat Exam: Oral Mucosa [place] & Moist (Erinn Rios) Neck Neck Exam: Neck Supple (Erinn Rios) Pulmonary Resp Exam: Clear Bilaterally, Breath Sounds Equal, No Distress (Erinn Rios) Cardiology CV Exam: Regular, Normal Sinus Rhythm, Good Perfusion (Erinn Rios) Gastrointestinal/Abdomen GI Exam: Soft, Non-Tender, Bowel Sounds Present (Erinn Rios) Genitourinary Exam: Clear Urine (Erinn Rios) Musculoskeletal MS Exam: Joints Intact, Normal Tone (Erinn Rios) Integumentary Skin Exam: Warm, Dry Skin Remarks right foot bandage in place (Erinn Rios) Extremeties Extremities Exam: Pedal Pulses Palpable (Erinn Rios) Neurologic Neuro Exam: Alert, Awake, Oriented, Speech Clear, Moving All Extremities ( Erinn Rios) Psychiatric Psych Exam: Appropriate Responses (Erinn Rios) Assessment/Plan Discussed Condition With: Patient Problem List: (1) Acute kidney injury Plan: ROBERTO: vancomycin induced nephrotoxicity, the medication has been stopped Improving renal function Potassium low, oral replacement ordered c02 improved Na elevated, he is on 0.45% NS, continue for now encouraged oral hydration avoid nephrotoxins renal panel in am no aviles required, he is non oliguric (2) Cellulitis of right lower extremity Plan: ID following. On Daptomycin Zosyn was stopped. 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 Wound vac in place cautious pain control (3) Tobacco abuse Plan: Cessation was advised. on nicotine patch (4) Alcohol abuse Plan: Needs to moderate ETOH habit. has CIWA protocol with Ativan available (5) Essential (primary) hypertension Plan: BP acceptable, he is on Metoprolol with prn clonidine Monitor. adjust medications as needed (6) Bipolar disorder (Erinn Rios) Plan patient was seen and examined. Renal function continues to improve. IVF can be tapered off. (Shawn Castelan MD) Erinn Rios Jul 21, 2016 09:24 Shawn Castelan MD Jul 21, 2016 19:58
[2016-07-21] MEDS: MORPHINE SULFATE 4 MG/ML INJ IV PRN (10:51)
--- NOTE | 2016-07-21 10:54 | HHI.IDPN ---
Subjective Subjective Remarks Notes reviewed No fever No new complaints Creatinine slowly decreasing For wound vac change today Had OR 07/19 - repeat debridement, with wound vac placement No new C/S sent Previous C/S with MRSA and GAS Good UO Antibiotics Cubicin Lines PIV Past Medical History Bipolar Disorder Alcohol Abuse Tobacco Abuse Right Foot Infection Non-compliance Past Surgical History Foot surgery Allergies: Coded Allergies: *MDRO Multi-Drug Resistant Organism (Verified Adverse Reaction, Unknown, ) MRSA (foot wound) - 07/13/2016 Objective . Vital Signs Date Time Temp Pulse Resp B/P Pulse Ox O2 Delivery O2 Flow Rate FiO2 07/21/16 08:00 97.4 52 16 148/84 98 07/21/16 00:02 16 07/21/16 00:00 98.3 50 20 151/93 95 07/20/16 22:23 18 07/20/16 20:00 98.9 59 20 149/78 97 07/20/16 16:00 97.9 70 17 143/97 96 07/20/16 12:00 96.4 98 17 157/93 99 07/20/16 07/20/16 07/21/16 15:00 23:00 07:00 Intake Total 1080 ml 720 ml 240 ml Output Total 1375 ml 900 ml 1820 ml Balance -295 ml -180 ml -1580 ml Intake Oral 1080 ml 720 ml 240 ml IV Total 0 ml 0 ml Output Urine Total 1350 ml 900 ml 1800 ml Drainage Total 25 ml 0 ml 20 ml # Bowel Movements 1 . Laboratory Tests Test 07/20/16 07/21/16 04:36 04:54 Sodium Level 145 MEQ/L 146 MEQ/L Potassium Level 3.5 MEQ/L 3.4 MEQ/L Chloride Level 114 MEQ/L 114 MEQ/L Carbon Dioxide Level 20.2 MEQ/L 24.5 MEQ/L Anion Gap 11 MEQ/L 8 MEQ/L Blood Urea Nitrogen 16 MG/DL 13 MG/DL Creatinine 3.93 MG/DL 3.59 MG/DL Estimat Glomerular Filtration 17 ML/MIN 19 ML/MIN Rate Random Glucose 112 MG/DL 104 MG/DL Calcium Level 8.0 MG/DL 8.1 MG/DL Magnesium Level 1.9 MG/DL 2.0 MG/DL Phosphorus Level 3.9 MG/DL Physical Exam GENERAL: Awake and alert, NAD. SKIN: Warm and dry, no generalized rash. HEENT: [place] conjunctivae. No scleral icterus. Moist oral mucosa. NECK: Supple, nontender, no meningeal signs. CARDIOVASCULAR: Regular rate and rhythm without murmurs, gallops, or rubs. RESPIRATORY: Clear to auscultation. Breath sounds equal bilaterally. No wheezes , rales, or rhonchi. GASTROINTESTINAL: Abdomen soft, non-tender, nondistended. Bowel sounds are present and normoactive. No hepato-splenomegaly, or palpable masses. No guarding. MUSCULOSKELETAL: Extremities without clubbing, cyanosis, or edema in the LLE. RLE is larger compared to his LLE. Wound vac on his R foot. NEUROLOGICAL: Non-focal PSYCH: Calm and cooperative LINE: PIV with no evidence of infection Assessment & Plan Remarks IMPRESSION Infected R foot, likely had contusion hematoma and got infected, S/P I and D - C/S MRSA and GAS - S/P repeat I and D ROBERTO, ?due to sepsis, infection - no obstruction - urine for eos negative - UA no cast - ?due to meds Non-compliance has signed out AMA 3X Tobacco abuse ETOH abuse ? RECOMMENDATION Continue Cubicin Wound care Monitor progress Check CPK, follow while on Cubicin Podiatry wants patient to have wound vac on D/C and follow-up with wound care clinic Compliance is a major issue with this patient Probably be able to use oral Abx on D/C - Clindamycin; Zyvox another option but he needs monitoring of CBC and this may become an issue with him not having this done due to compliance problems Isha Daniel MD Jul 21, 2016 10:53
[2016-07-21 12:00] VITALS: BP 155/93; PULSE 57; RESP 17; TEMP 96.9; O2SAT 98
[2016-07-21] MEDS: DAPTOmycin INJ 300 MG in SODIUM CHLORIDE 0.9% INJ 100 ML IV SCH (13:30)
--- NOTE | 2016-07-21 14:57 | HHI.PR ---
Subjective Remarks F/u ROBERTO. No compliants agrees to restart IVF dw RN Objective Vitals Vital Signs Date Time Temp Pulse Resp B/P Pulse Ox O2 Delivery O2 Flow Rate FiO2 07/21/16 12:00 96.9 57 17 155/93 98 07/21/16 08:00 97.4 52 16 148/84 98 07/21/16 00:02 16 07/21/16 00:00 98.3 50 20 151/93 95 07/20/16 22:23 18 07/20/16 20:00 98.9 59 20 149/78 97 07/20/16 16:00 97.9 70 17 143/97 96 I/O 07/20/16 07/20/16 07/20/16 07/21/16 07/21/16 07/21/16 07:00 15:00 23:00 07:00 15:00 23:00 Intake Total 360 ml 1080 ml 720 ml 240 ml 1680 ml Output Total 600 ml 1375 ml 900 ml 1820 ml 1500 ml Balance -240 ml -295 ml -180 ml -1580 ml 180 ml Intake Oral 360 ml 1080 ml 720 ml 240 ml 1680 ml IV Total 0 ml 0 ml Output Urine Total 600 ml 1350 ml 900 ml 1800 ml 1500 ml Drainage Total 0 ml 25 ml 0 ml 20 ml # Voids 2 # Bowel Movements 0 1 0 Result Diagram: 07/19/16 0357 07/21/16 0454 Objective Remarks GENERAL: Well developed, well-nourished in no distress SKIN: Warm and dry. HEAD: Atraumatic. Normocephalic. EYES: Pupils equal and round. No scleral icterus. No injection or drainage. ENT: No nasal bleeding or discharge. Mucous membranes pink and moist. NECK: Trachea midline. No JVD. CARDIOVASCULAR: Regular rate and rhythm. RESPIRATORY: No accessory muscle use. Clear to auscultation. Breath sounds equal bilaterally. GASTROINTESTINAL: Abdomen soft, non-tender, nondistended. MUSCULOSKELETAL: Extremities without clubbing, cyanosis, or edema. No obvious deformities. Dry dressing right foot NEUROLOGICAL: Awake and alert. No obvious cranial nerve deficits. Motor grossly within normal limits. Five out of 5 muscle strength in the arms and legs. Normal speech. PSYCHIATRIC: Appropriate mood and affect; insight and judgment normal. Procedures I&D R foot with wound vac placement A/P Problem List: (1) Abscess of right foot ICD Code: L02.611 Status: Acute (2) Non-compliance ICD Code: Z91.19 Status: Acute (3) Renal insufficiency ICD Code: N28.9 Status: Acute (4) Bipolar disorder ICD Code: F31.9 Status: Chronic (5) Alcohol abuse ICD Code: F10.10 Status: Chronic (6) Tobacco abuse ICD Code: Z72.0 Status: Chronic Assessment and Plan 1. Right Foot Abscess/Infection: s/p injury w/ abscess/infection, eval by Dr. Valentine s/p I&D 07/16/16. Wound Cultures 07/13/16 +MRSA and Group A Beta Strep. LEFT AMA prior to surgery planned for 07/17/16. Re-admit, place on IV Abx, re- consult ID, re-consult Podiatry. I&D R foot with wound vac placement. Pain management with oxycodone which will be increased and morphine IV as needed 2. Non-Compliance: LEFT AMA x3, for leaving to smoke, for not trusting doctors. States he's going to stay this time, however said same thing on previous occasions. 3. Acute kidney injury likely related to vancomycin: Creatinine 1.06 on , increased throughout hospitalization, now 5.30 on 07/17/16. Avoid nephrotoxins. Slowly improving on IV hydration. Repeat BMP and magnesium in the morning 4. Alcohol Abuse: CIWA, Seizure Precautions, MVT/Thiamine/Folate replacement. 5. Tobacco Abuse: Counselled. NicoDerm, Ativan prn. 6. Bipolar Disorder: Not on medications, Ativan prn. 7. Elevated BP likely secondary to pain. No history of hypertension. Continue to monitor with as needed clonidine. DVT Prophylaxis: Pharmacologic contraindication due to upcoming surgery. Mechanical contraindication due to injury/wound Froy Dasilva MD Jul 21, 2016 14:57
[2016-07-21 16:00] VITALS: BP 159/92; PULSE 63; RESP 16; TEMP 98.5; O2SAT 95
[2016-07-21] MEDS: ACETAMINOPHEN 325 MG TAB PO PRN (18:07)
[2016-07-21 20:00] VITALS: BP 157/92; PULSE 60; RESP 20; TEMP 98; O2SAT 95
[2016-07-22] VITALS: BP 149/95; PULSE 64; RESP 20; TEMP 96.5; O2SAT 95
[2016-07-22 06:56] LABS: BICARBONATE 25.9 MEQ/L (21.0-32.0); MAGNESIUM 1.9 MG/DL (1.5-2.5); POTASSIUM 3.7 MEQ/L (3.5-5.1)
[2016-07-22 08:00] VITALS: BP 146/76; PULSE 59; RESP 16; TEMP 98.1; O2SAT 95
[2016-07-22] MEDS: LACTATED RINGER'S 1000 ML IV SCH (08:00)
[2016-07-22] MEDS: REMOVE OLD NICODERM (NICOTINE) PATCH TD SCH (09:00)
[2016-07-22] MEDS: FOLIC ACID 1 MG TAB PO SCH (09:35)
[2016-07-22] MEDS: THIAMINE HCL 100 MG TAB PO SCH (09:35)
[2016-07-22] MEDS: MULTIVITAMIN TAB PO SCH (09:35)
[2016-07-22] MEDS: NICOTINE 21 MG/24 HR PATCH TD SCH (09:36)
[2016-07-22] MEDS: METOPROLOL TARTRATE 25 MG TAB PO SCH ×2 (09:36→23:01)
[2016-07-22] MEDS: SODIUM CHLORIDE 0.9% FLUSH 5 ML FLUSH FLUSH SCH ×2 (09:37→19:50)
--- NOTE | 2016-07-22 11:38 | HHI.NPPN ---
Subjective Renal Failure: Acute Interval History Renal function is better. He is ambulatory in room. (Erinn Rios) Review of Systems Musculoskeletal MS: Pain/Stiffness MS Remarks right foot (Erinn Rios) Objective Data Data 07/21/16 07/22/16 19:00 07:00 Intake Total 1680 ml 720 ml Output Total 1500 ml 2700 ml Balance 180 ml -1980 ml Intake Oral 1680 ml 720 ml IV Total 0 ml Output Urine Total 1500 ml 2700 ml # Bowel Movements 0 Vital Signs Date Time Temp Pulse Resp B/P Pulse Ox O2 Delivery O2 Flow Rate FiO2 07/22/16 08:00 98.1 59 16 146/76 95 07/22/16 05:41 16 07/22/16 00:00 96.5 64 20 149/95 95 07/21/16 20:00 98.0 60 20 157/92 95 07/21/16 16:00 98.5 63 16 159/92 95 07/21/16 12:00 96.9 57 17 155/93 98 (Erinn Rios) -: 07/19/16 0357 07/22/16 0604 Tubes & Lines Comment wound vac (Erinn Rios) Physical Exam General Appearance: Well Developed, Well Nourished, No Acute Distress, Comfortable ( Erinn Rios) Throat Throat Exam: Oral Mucosa [place] & Moist (Erinn Rios) Neck Neck Exam: Neck Supple (Erinn Rios) Pulmonary Resp Exam: Clear Bilaterally, Breath Sounds Equal, No Distress (Erinn Rios) Cardiology CV Exam: Regular, Normal Sinus Rhythm, Good Perfusion (Erinn Rios) Gastrointestinal/Abdomen GI Exam: Soft, Non-Tender, Bowel Sounds Present (Erinn Rios) Genitourinary Exam: Clear Urine (Erinn Rios) Musculoskeletal MS Exam: Joints Intact, Normal Tone (Erinn Rios) Integumentary Skin Exam: Warm, Dry Skin Remarks right foot bandage in place (Erinn Rios) Extremeties Extremities Exam: Pedal Pulses Palpable (Erinn Rios) Neurologic Neuro Exam: Alert, Awake, Oriented, Speech Clear, Moving All Extremities ( Erinn Rios) Psychiatric Psych Exam: Appropriate Responses (Erinn Rios) Assessment/Plan Discussed Condition With: Patient Problem List: (1) Acute kidney injury Plan: ROBERTO: vancomycin induced nephrotoxicity, the medication has been stopped creatinine improving daily Potassium corrected no evidence of acidosis IVF was stopped, encouraged oral hydration avoid nephrotoxins renal panel in am no aviles required, he is non oliguric (2) Cellulitis of right lower extremity Plan: ID following. 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 Wound vac in place cautious pain control (3) Tobacco abuse Plan: Cessation was advised. on nicotine patch (4) Alcohol abuse Plan: Needs to moderate ETOH habit. has CIWA protocol with Ativan available (5) Essential (primary) hypertension Plan: BP acceptable, he is on Metoprolol with prn clonidine Monitor. adjust medications as needed (6) Bipolar disorder (Erinn Rios) Plan patient was seen and examined. Renal function continues to improve. Continue supportive care. Avoid Vancomycin. (Shawn Castelan MD) Erinn Rios Jul 22, 2016 11:38 Shawn Castelan MD Jul 23, 2016 10:55
[2016-07-22 12:00] VITALS: BP 142/76; PULSE 79; RESP 16; TEMP 97.2; O2SAT 98
[2016-07-22 16:00] VITALS: BP_SYST 165; BP_SYST 183; BP_DIAS 80; BP_DIAS 98; PULSE 53; RESP 16; TEMP 97.4; O2SAT 99
--- NOTE | 2016-07-22 16:02 | HHI.PR ---
Subjective Remarks Follow-up acute kidney injury. Patient refusing IV hydration states he's been taking fluids. Discussed with RN Objective Vitals Vital Signs Date Time Temp Pulse Resp B/P Pulse Ox O2 Delivery O2 Flow Rate FiO2 07/22/16 12:00 97.2 79 16 142/76 98 07/22/16 08:00 98.1 59 16 146/76 95 07/22/16 05:41 16 07/22/16 00:00 96.5 64 20 149/95 95 07/21/16 20:00 98.0 60 20 157/92 95 07/21/16 16:00 98.5 63 16 159/92 95 I/O 07/21/16 07/21/16 07/21/16 07/22/16 07/22/16 07/22/16 07:00 15:00 23:00 07:00 15:00 23:00 Intake Total 240 ml 1680 ml 480 ml 240 ml Output Total 1820 ml 1500 ml 1150 ml 1550 ml Balance -1580 ml 180 ml -670 ml -1310 ml Intake Oral 240 ml 1680 ml 480 ml 240 ml IV Total 0 ml 0 ml Output Urine Total 1800 ml 1500 ml 1150 ml 1550 ml Drainage Total 20 ml # Bowel Movements 0 Result Diagram: 07/19/16 0357 07/22/16 0604 Objective Remarks GENERAL: Well developed, well-nourished in no distress SKIN: Warm and dry. HEAD: Atraumatic. Normocephalic. EYES: Pupils equal and round. No scleral icterus. No injection or drainage. ENT: No nasal bleeding or discharge. Mucous membranes pink and moist. NECK: Trachea midline. No JVD. CARDIOVASCULAR: Regular rate and rhythm. RESPIRATORY: No accessory muscle use. Clear to auscultation. Breath sounds equal bilaterally. GASTROINTESTINAL: Abdomen soft, non-tender, nondistended. MUSCULOSKELETAL: Extremities without clubbing, cyanosis, or edema. No obvious deformities. Dry dressing right foot NEUROLOGICAL: Awake and alert. No obvious cranial nerve deficits. Motor grossly within normal limits. Five out of 5 muscle strength in the arms and legs. Normal speech. Nonfocal PSYCHIATRIC: Appropriate mood and affect; insight and judgment normal. Procedures I&D R foot with wound vac placement A/P Problem List: (1) Abscess of right foot ICD Code: L02.611 Status: Acute (2) Non-compliance ICD Code: Z91.19 Status: Acute (3) Renal insufficiency ICD Code: N28.9 Status: Acute (4) Bipolar disorder ICD Code: F31.9 Status: Chronic (5) Alcohol abuse ICD Code: F10.10 Status: Chronic (6) Tobacco abuse ICD Code: Z72.0 Status: Chronic Assessment and Plan 1. Right Foot Abscess/Infection: s/p injury w/ abscess/infection, eval by Dr. Valentine s/p I&D 07/16/16. Wound Cultures 07/13/16 +MRSA and Group A Beta Strep. LEFT AMA prior to surgery planned for 07/17/16. Re-admit, place on IV daptomycin, re-consult ID, re-consult Podiatry. I&D R foot with wound vac placement. Pain management with oxycodone which will be increased and morphine IV as needed 2. Non-Compliance: LEFT AMA x3, for leaving to smoke, for not trusting doctors. States he's going to stay this time, however said same thing on previous occasions. 3. Acute kidney injury likely related to vancomycin: Creatinine 1.06 on , increased throughout hospitalization, now 5.30 on 07/17/16. Avoid nephrotoxins. Slowly improving on po hydration refusing IV hydration. Repeat BMP and magnesium in the morning 4. Alcohol Abuse: CIWA, Seizure Precautions, MVT/Thiamine/Folate replacement. 5. Tobacco Abuse: Counselled. NicoDerm, Ativan prn. 6. Bipolar Disorder: Not on medications, Ativan prn. 7. Elevated BP likely secondary to pain. No history of hypertension. Continue to monitor with as needed clonidine. DVT Prophylaxis: Pharmacologic contraindication due to upcoming surgery. Mechanical contraindication due to injury/wound Froy Dasilva MD Jul 22, 2016 16:02
[2016-07-22 20:19] VITALS: BP_SYST 168; BP_DIAS 75; BP_DIAS 78; PULSE 79; RESP 18; TEMP 98.5; O2SAT 98
[2016-07-22 23:44] VITALS: BP 142/82; PULSE 54; RESP 18; TEMP 97.8; O2SAT 96
[2016-07-23] MEDS: ACETAMINOPHEN 325 MG TAB PO PRN (04:05)
[2016-07-23 05:14] LABS: MAGNESIUM 1.9 MG/DL (1.5-2.5); POTASSIUM 3.2 MEQ/L (3.5-5.1)
[2016-07-23] MEDS: LACTATED RINGER'S 1000 ML IV SCH (07:37)
[2016-07-23] MEDS: THIAMINE HCL 100 MG TAB PO SCH (07:38)
[2016-07-23] MEDS: NICOTINE 21 MG/24 HR PATCH TD SCH (07:39)
[2016-07-23] MEDS: METOPROLOL TARTRATE 25 MG TAB PO SCH ×2 (07:39→19:44)
[2016-07-23] MEDS: REMOVE OLD NICODERM (NICOTINE) PATCH TD SCH (07:40)
[2016-07-23] MEDS: SODIUM CHLORIDE 0.9% FLUSH 5 ML FLUSH FLUSH SCH ×2 (07:40→19:44)
[2016-07-23 08:28] VITALS: BP 169/102; PULSE 61; RESP 20; TEMP 97.9; O2SAT 95
[2016-07-23] MEDS ORDERED: POTASSIUM CHLORIDE 10 MEQ CONTROLLED RELEASE TAB PO ONE (09:00)
--- NOTE | 2016-07-23 09:56 | HHI.NPPN ---
Subjective Renal Failure: Acute Interval History Sitting up in bed. No acute concerns but wanting to be discharged. Renal function is better. (Erinn Rios) Review of Systems Musculoskeletal MS: Pain/Stiffness MS Remarks right foot (Erinn Rios) Objective Data Data 07/22/16 07/23/16 19:00 07:00 Intake Total 360 ml 1240 ml Output Total 2100 ml 3220 ml Balance -1740 ml -1980 ml Intake Oral 360 ml 1240 ml IV Total 0 ml Output Urine Total 1000 ml 3200 ml Stool Total 1100 ml Drainage Total 20 ml # Bowel Movements 1 Vital Signs Date Time Temp Pulse Resp B/P Pulse Ox O2 Delivery O2 Flow Rate FiO2 07/23/16 08:28 97.9 61 20 169/102 95 07/22/16 23:44 97.8 54 18 142/82 96 07/22/16 20:19 98.5 79 18 168/75 98 07/22/16 16:00 97.4 53 16 183/98 99 165/80 07/22/16 12:00 97.2 79 16 142/76 98 (Erinn Rios) -: 07/19/16 0357 07/23/16 0355 Tubes & Lines Comment wound vac (Erinn Rios) Physical Exam General Appearance: Well Developed, Well Nourished, No Acute Distress, Comfortable ( Erinn Rios) Throat Throat Exam: Oral Mucosa [place] & Moist (Erinn Rios) Neck Neck Exam: Neck Supple (Erinn Rios) Pulmonary Resp Exam: Clear Bilaterally, Breath Sounds Equal, No Distress (Erinn Rios) Cardiology CV Exam: Regular, Normal Sinus Rhythm, Good Perfusion (Erinn Rios) Gastrointestinal/Abdomen GI Exam: Soft, Non-Tender, Bowel Sounds Present (Erinn Rios) Genitourinary Exam: Clear Urine (Erinn Rios) Musculoskeletal MS Exam: Joints Intact, Normal Tone (Erinn Rios) Integumentary Skin Exam: Warm, Dry Skin Remarks right foot bandage in place (Erinn Rios) Extremeties Extremities Exam: Pedal Pulses Palpable (Erinn Rios) Neurologic Neuro Exam: Alert, Awake, Oriented, Speech Clear, Moving All Extremities ( Erinn Rios) Psychiatric Psych Exam: Appropriate Responses (Erinn Rios) Assessment/Plan Discussed Condition With: Patient Problem List: (1) Acute kidney injury Plan: ROBERTO: vancomycin induced nephrotoxicity, the medication has been stopped creatinine continues to improve, anticipate daily improvement Potassium corrected no evidence of acidosis off IVF, tolerating oral hydration avoid nephrotoxins renal panel in am no aviles required, he is non oliguric (2) Cellulitis of right lower extremity Plan: ID following. On Daptomycin, likely will be transitioned to po Clindamycin or Zyvoxx at time of discharge s/p debridement on 07/19 by old coin dealer. Wound vac in place cautious pain control (3) Tobacco abuse Plan: Cessation was advised. on nicotine patch (4) Alcohol abuse Plan: Needs to moderate ETOH habit. has CIWA protocol with Ativan available (5) Essential (primary) hypertension Plan: BP acceptable, he is on Metoprolol with prn clonidine Monitor. adjust medications as needed pain may be contributing to elevated BP readings (6) Bipolar disorder (Erinn Rios) Plan patient was seen and examined. Renal function has improved. Avoid Vancomycin. ( Shawn Castelan MD) Erinn Rios Jul 23, 2016 09:56 Shawn Castelan MD Jul 23, 2016 11:13
[2016-07-23] MEDS: DAPTOmycin INJ 300 MG in SODIUM CHLORIDE 0.9% INJ 100 ML IV SCH (11:52)
[2016-07-23 12:00] VITALS: BP 167/98; PULSE 48; RESP 17; TEMP 97.4; O2SAT 98
[2016-07-23] MEDS ORDERED: OXYC-395 PO (12:47)
[2016-07-23] MEDS ORDERED: METO25TA3 PO (12:47)
[2016-07-23] MEDS ORDERED: CLIN1CAP6 PO (12:47)
[2016-07-23] MEDS ORDERED: VITA100T2 PO (12:47)
--- NOTE | 2016-07-23 12:48 | HHI.DCPOC ---
Discharge Care Plan Diagnosis: (1) Cellulitis of right lower extremity (2) Abscess of right foot Your Health Problems Are: Difficulty with ADL Exercise Tolerance Goals to Promote Your Health * To prevent worsening of your condition and complications * To maintain your health at the optimal level Directions to Meet Your Goals Take your medications as prescribed Follow your dietary instruction Follow activity as directed Keep your appointments as scheduled Take your immunizations and boosters as scheduled If your symptoms worsen call your PCP, if no PCP go to Urgent Care Center or Emergency Room Smoking is Dangerous to Your Health. Avoid second hand smoke Call the 24-hour hour crisis hotline for domestic abuse at Froy Dasilva MD Jul 23, 2016 12:48
--- NOTE | 2016-07-23 12:49 | HHI.FF ---
Face to Face Verification Diagnosis: (1) Abscess of right foot (2) Cellulitis of right lower extremity Home Health Nursing Order: Medical education Signs/symptoms of disease process Medication education-adverse effect Wound care and dressing changes Nursing assessment with vital signs I have seen patient Stewart Matias on 07/23/16. My clinical findings support the need for the requested home health care services because: Deconditioned w/ increased weakness Med compliance is questionable I certify that my clinical findings support that this patient is homebound because: Need for psychosocial assistance Froy Dasilva MD Jul 23, 2016 12:49
--- NOTE | 2016-07-23 12:50 | HHI.PR ---
Objective Vitals Vital Signs Date Time Temp Pulse Resp B/P Pulse Ox O2 Delivery O2 Flow Rate FiO2 07/23/16 09:38 20 07/23/16 08:28 97.9 61 20 169/102 95 07/22/16 23:44 97.8 54 18 142/82 96 07/22/16 20:19 98.5 79 18 168/75 98 07/22/16 16:00 97.4 53 16 183/98 99 165/80 I/O 07/22/16 07/22/16 07/22/16 07/23/16 07/23/16 07/23/16 07:00 15:00 23:00 07:00 15:00 23:00 Intake Total 240 ml 360 ml 480 ml 760 ml 120 ml Output Total 1550 ml 2100 ml 1200 ml 2020 ml Balance -1310 ml -1740 ml -720 ml -1260 ml 120 ml Intake Oral 240 ml 360 ml 480 ml 760 ml 120 ml IV Total 0 ml 0 ml Output Urine Total 1550 ml 1000 ml 1200 ml 2000 ml Stool Total 1100 ml Drainage Total 20 ml # Bowel Movements 1 Result Diagram: 07/19/16 0357 07/23/16 0355 Objective Remarks GENERAL: Well developed, well-nourished in no distress SKIN: Warm and dry. HEAD: Atraumatic. Normocephalic. EYES: Pupils equal and round. No scleral icterus. No injection or drainage. ENT: No nasal bleeding or discharge. Mucous membranes pink and moist. NECK: Trachea midline. No JVD. CARDIOVASCULAR: Regular rate and rhythm. RESPIRATORY: No accessory muscle use. Clear to auscultation. Breath sounds equal bilaterally. GASTROINTESTINAL: Abdomen soft, non-tender, nondistended. MUSCULOSKELETAL: Extremities without clubbing, cyanosis, or edema. No obvious deformities. Dry dressing right foot NEUROLOGICAL: Awake and alert. No obvious cranial nerve deficits. Motor grossly within normal limits. Five out of 5 muscle strength in the arms and legs. Normal speech. Nonfocal PSYCHIATRIC: Appropriate mood and affect; insight and judgment normal. Procedures I&D R foot with wound vac placement A/P Problem List: (1) Abscess of right foot ICD Code: L02.611 Status: Acute (2) Non-compliance ICD Code: Z91.19 Status: Acute (3) Renal insufficiency ICD Code: N28.9 Status: Acute (4) Bipolar disorder ICD Code: F31.9 Status: Chronic (5) Alcohol abuse ICD Code: F10.10 Status: Chronic (6) Tobacco abuse ICD Code: Z72.0 Status: Chronic Assessment and Plan 1. Right Foot Abscess/Infection: s/p injury w/ abscess/infection, eval by Dr. Valentine s/p I&D 07/16/16. Wound Cultures 07/13/16 +MRSA and Group A Beta Strep. LEFT AMA prior to surgery planned for 07/17/16. Re-admit, place on IV daptomycin, re-consult ID, re-consult Podiatry. I&D R foot with wound vac placement. Pain management with oxycodone which will be increased and morphine IV as needed 2. Non-Compliance: LEFT AMA x3, for leaving to smoke, for not trusting doctors. States he's going to stay this time, however said same thing on previous occasions. 3. Acute kidney injury likely related to vancomycin: Creatinine 1.06 on , increased throughout hospitalization, now 5.30 on 07/17/16. Avoid nephrotoxins. Slowly improving on po hydration refusing IV hydration. Repeat BMP and magnesium in the morning 4. Alcohol Abuse: CIWA, Seizure Precautions, MVT/Thiamine/Folate replacement. 5. Tobacco Abuse: Counselled. NicoDerm, Ativan prn. 6. Bipolar Disorder: Not on medications, Ativan prn. 7. Elevated BP likely secondary to pain. No history of hypertension. Continue to monitor with as needed clonidine. DVT Prophylaxis: Pharmacologic contraindication due to upcoming surgery. Mechanical contraindication due to injury/wound Froy Dasilva MD Jul 23, 2016 12:50
--- NOTE | 2016-07-23 14:10 | HHI.PR ---
Subjective Remarks Follow-up acute kidney injury and foot infection. He has no complaints threatening to leave AGAINST MEDICAL ADVICE. Discussed with RN Objective Vitals Vital Signs Date Time Temp Pulse Resp B/P Pulse Ox O2 Delivery O2 Flow Rate FiO2 07/23/16 12:50 17 07/23/16 12:00 97.4 48 17 167/98 98 07/23/16 08:28 97.9 61 20 169/102 95 07/22/16 23:44 97.8 54 18 142/82 96 07/22/16 20:19 98.5 79 18 168/75 98 07/22/16 16:00 97.4 53 16 183/98 99 165/80 I/O 07/22/16 07/22/16 07/22/16 07/23/16 07/23/16 07/23/16 07:00 15:00 23:00 07:00 15:00 23:00 Intake Total 240 ml 360 ml 480 ml 760 ml 120 ml Output Total 1550 ml 2100 ml 1200 ml 2020 ml Balance -1310 ml -1740 ml -720 ml -1260 ml 120 ml Intake Oral 240 ml 360 ml 480 ml 760 ml 120 ml IV Total 0 ml 0 ml Output Urine Total 1550 ml 1000 ml 1200 ml 2000 ml Stool Total 1100 ml Drainage Total 20 ml # Bowel Movements 1 Result Diagram: 07/19/16 0357 07/23/16 0355 Objective Remarks GENERAL: Well developed, well-nourished in no distress SKIN: Warm and dry. HEAD: Atraumatic. Normocephalic. EYES: Pupils equal and round. No scleral icterus. No injection or drainage. ENT: No nasal bleeding or discharge. Mucous membranes pink and moist. NECK: Trachea midline. No JVD. CARDIOVASCULAR: Regular rate and rhythm. RESPIRATORY: No accessory muscle use. Clear to auscultation. Breath sounds equal bilaterally. GASTROINTESTINAL: Abdomen soft, non-tender, nondistended. MUSCULOSKELETAL: Extremities without clubbing, cyanosis, or edema. No obvious deformities. Right foot with wound VAC NEUROLOGICAL: Awake and alert. No obvious cranial nerve deficits. Motor grossly within normal limits. Five out of 5 muscle strength in the arms and legs. Normal speech. Nonfocal PSYCHIATRIC: Appropriate mood and affect; insight and judgment normal. Procedures I&D R foot with wound vac placement A/P Problem List: (1) Abscess of right foot ICD Code: L02.611 Status: Acute (2) Non-compliance ICD Code: Z91.19 Status: Acute (3) Renal insufficiency ICD Code: N28.9 Status: Acute (4) Bipolar disorder ICD Code: F31.9 Status: Chronic (5) Alcohol abuse ICD Code: F10.10 Status: Chronic (6) Tobacco abuse ICD Code: Z72.0 Status: Chronic Assessment and Plan 1. Right Foot Abscess/Infection no osteomyelitis on imaging study: s/p injury w/ abscess/infection, eval by Dr. Valentine s/p I&D 07/16/16. Wound Cultures 07/13 +MRSA and Group A Beta Strep. LEFT AMA prior to surgery planned for . Re-admit, place on IV daptomycin, re-consult ID, re-consult Podiatry. I&D R foot with wound vac placement. Pain management with oxycodone which will be increased and morphine IV as needed 2. Non-Compliance: LEFT AMA x3, for leaving to smoke, for not trusting doctors. States he's going to stay this time, however said same thing on previous occasions. 3. Acute kidney injury likely related to vancomycin: Creatinine 1.06 on , increased throughout hospitalization, now 5.30 on 07/17/16. Avoid nephrotoxins. Slowly improving on po hydration refusing IV hydration. Repeat BMP and magnesium 4. Alcohol Abuse: CIWA, Seizure Precautions, MVT/Thiamine/Folate replacement. 5. Tobacco Abuse: Counselled. NicoDerm, Ativan prn. 6. Bipolar Disorder: Not on medications, Ativan prn. 7. Elevated BP likely secondary to pain. No history of hypertension. Continue to monitor with as needed clonidine. DVT Prophylaxis: Pharmacologic contraindication due to upcoming surgery. Mechanical contraindication due to injury/wound Froy Dasilva MD Jul 23, 2016 14:10
[2016-07-23 16:00] VITALS: BP 155/83; PULSE 59; RESP 17; TEMP 98.9; O2SAT 95
[2016-07-23] MEDS: MORPHINE SULFATE 4 MG/ML INJ IV PRN (18:04)
--- NOTE | 2016-07-23 19:07 | PD.POD ---
Subjective Podiatric Problems Patient states he is feeling well and anxious for discharge. He states he mostly has pain with dressing changes. He denies any n/v/f/h/c/sob. Pain score: 4 Past Med/Surg/Social History Social History Smoking Status: Current Every Day Smoker Objective Vital Signs Vital Signs Date Time Temp Pulse Resp B/P Pulse Ox O2 Delivery O2 Flow Rate FiO2 07/23/16 18:12 17 07/23/16 18:01 20 07/23/16 16:00 98.9 59 17 155/83 95 07/23/16 12:00 97.4 48 17 167/98 98 07/23/16 08:28 97.9 61 20 169/102 95 07/22/16 23:44 97.8 54 18 142/82 96 07/22/16 20:19 98.5 79 18 168/75 98 Coded Allergies: *MDRO Multi-Drug Resistant Organism (Verified Adverse Reaction, Unknown, ) MRSA (foot wound) - 07/13/2016 Exam-Podiatry Remarks No changes in neuro, vasc, or biomechanics. Right dorsal lateral foot wound 3.5cm x 3.5cm x0.7cm mostly granular with some exposed extensor tendons, no erythema, no drainage, no malodor Assessment & Plan A/P 1) stage III ulcer with resolved cellulitis, s/p debridement with Dr. Valentine -Wound care nurse to place home wound VAC tomorrow -Patients wound is progressing well, he is to follow up M/W/F in the clinic for wound vac changes -Ok to d/c when cleared by medicine and all social arrangements are made Lindsay Lizarraga DPM Jul 23, 2016 19:07
[2016-07-23 20:00] VITALS: BP 145/97; PULSE 69; RESP 17; TEMP 98.3; O2SAT 98
[2016-07-24] VITALS: BP 151/97; PULSE 64; RESP 17; TEMP 97.6; O2SAT 97
[2016-07-24 05:10] LABS: BICARBONATE 27.2 MEQ/L (21.0-32.0); MAGNESIUM 1.9 MG/DL (1.5-2.5); POTASSIUM 3.3 MEQ/L (3.5-5.1)
--- NOTE | 2016-07-24 07:23 | MP ---
cc: RONAN LUNA DPHossein DATE OF SURGERY 07/19/2016 DATE OF 1970 INDICATIONS This patient was seen initially earlier in the week and he underwent incision and drainage of abscess to the right dorsolateral foot. He has since left against medical advice three times siding one of these events as not liking what someone said to him and another is not liking the way someone looked at him. He does suffer from bipolar disorder and is also an alcoholic. Upon discussing with the patient surgery, I discussed with him that if he does not undergo surgery, there is a very good chance he will lose his limb. The patient seemed to understand and agreed to stay in hospital for the remainder of his treatment in order to salvage his right lower extremity. He consented for incision and drainage of abscess right foot, possible wound VAC placement. PROCEDURE The patient was seen in preop holding by myself, nursing staff and Anesthesia where the correct patient, side and site were all confirmed to be correct in the right foot. He was then taken to the surgical suite, placed in supine position where the right foot was prepped and draped in normal sterile fashion. Attention was directed to the right dorsal lateral foot. Stewart was noted to have significant necrotic tissue down to the tendon sheath, but no tendon was exposed. At this time, the wound measured approximately 6 cm x 4 cm and was 1 cm in depth. I did undermine 1 cm between the fourth and fifth digits. The wound was copiously irrigated with 6 liters of normal sterile saline with gentamicin, as well as removal of the curettage and excisional debridement using a #15 blade as well as curettage and rongeur. All blood remaining tissue did appear to be healthy and viable prior to application of the wound VAC. A small wound VAC was then placed on the right foot and set at 125 mmHg continuous. No leaks were detected and the equipment was functioning properly prior to exit from the operating room. Xeroform was applied to the lateral ankle where he had some de-roofed blisters noted followed by 4x4s, cast padding and a Daniel bandage to the right foot and ankle. He tolerated the procedure well and anesthesia well without complications at this time and will need wound VAC changes Wednesday, Wednesday, Wednesday or Wednesday, , Wednesday based on availability in needs to continue IV antibiotics until all residual cellulitis has resolved. He may or may not need further surgery in the future and will be followed up as he is in the hospital over the coming days to determine if she requires further surgery. He was then taken to the PACU with vital signs stable and vascular status intact to the remainder of the right foot. He will be weightbearing as tolerated to the right in a surgical shoe with wound VAC. SURGEON Ronan Luna MD CORRECTIONAL AGENCY DIRECTOR Staff PREOPERATIVE DIAGNOSIS Abscess and infection right foot. POSTOPERATIVE DIAGNOSIS Abscess and infection right foot. PROCEDURE Incision and drainage right foot with wound VAC placement PATHOLOGY None ANESTHESIA General endotracheal anesthesia ESTIMATED BLOOD LOSS 10 mL COMPLICATIONS None HEMOSTASIS None CONDITION stable to PACU. DISPOSITION Weightbearing as tolerated. surgical shoe. Continue wound VAC at 125 mmHg continuous. Ronan DUPREE/DJL /5:35 PM /7:07 AM
[2016-07-24 07:50] VITALS: BP 143/81; PULSE 67; RESP 20; TEMP 98.9; O2SAT 95
[2016-07-24] MEDS ORDERED: POTASSIUM CHLORIDE 20 MEQ CONTROLLED RELEASE TAB PO ONE (08:45)
[2016-07-24] MEDS: REMOVE OLD NICODERM (NICOTINE) PATCH TD SCH (09:00)
[2016-07-24] MEDS: NICOTINE 21 MG/24 HR PATCH TD SCH (09:00)
[2016-07-24] MEDS: METOPROLOL TARTRATE 25 MG TAB PO SCH (09:00)
[2016-07-24] MEDS: SODIUM CHLORIDE 0.9% FLUSH 5 ML FLUSH FLUSH SCH (09:13)
[2016-07-24] MEDS: THIAMINE HCL 100 MG TAB PO SCH (09:14)
--- NOTE | 2016-07-24 09:59 | HHI.NPPN ---
Subjective Renal Failure: Acute Interval History Renal function is better. He is wanting to be discharged. (Erinn Rios) Review of Systems Musculoskeletal MS: Pain/Stiffness MS Remarks right foot (Erinn Rios) Objective Data Data 07/23/16 07/24/16 19:00 07:00 Intake Total 1220 ml 480 ml Output Total 1200 ml 1300 ml Balance 20 ml -820 ml Intake Oral 1120 ml 480 ml IV Total 100 ml 0 ml Output Urine Total 1200 ml 1300 ml Drainage Total 0 ml # Bowel Movements 1 Vital Signs Date Time Temp Pulse Resp B/P Pulse Ox O2 Delivery O2 Flow Rate FiO2 07/24/16 07:50 98.9 67 20 143/81 95 07/24/16 00:00 97.6 64 17 151/97 97 07/23/16 20:00 98.3 69 17 145/97 98 07/23/16 18:12 17 07/23/16 18:01 20 07/23/16 16:00 98.9 59 17 155/83 95 07/23/16 12:00 97.4 48 17 167/98 98 (Erinn Rios) -: 07/24/16 0341 Tubes & Lines Comment wound vac (Erinn Rios) Physical Exam General Appearance: Well Developed, Well Nourished, No Acute Distress, Comfortable ( Erinn Rios) Throat Throat Exam: Oral Mucosa [place] & Moist (Erinn Rios) Neck Neck Exam: Neck Supple (Erinn Rios) Pulmonary Resp Exam: Clear Bilaterally, Breath Sounds Equal, No Distress (Erinn iRos) Cardiology CV Exam: Regular, Normal Sinus Rhythm, Good Perfusion (Erinn Rios) Gastrointestinal/Abdomen GI Exam: Soft, Non-Tender, Bowel Sounds Present (Erinn Rios) Genitourinary Exam: Clear Urine (Erinn Rios) Musculoskeletal MS Exam: Joints Intact, Normal Tone (Erinn Rios) Integumentary Skin Exam: Warm, Dry Skin Remarks right foot bandage in place (Erinn Rios) Extremeties Extremities Exam: Pedal Pulses Palpable (Erinn Rios) Neurologic Neuro Exam: Alert, Awake, Oriented, Speech Clear, Moving All Extremities ( Erinn Rios) Psychiatric Psych Exam: Appropriate Responses (Erinn Rios) Assessment/Plan Discussed Condition With: Patient Problem List: (1) Acute kidney injury Plan: ROBERTO: vancomycin induced nephrotoxicity, the medication has been stopped creatinine continues to improve, anticipate daily improvement Potassium corrected no evidence of acidosis tolerating oral hydration avoid nephrotoxins renal panel in am he is non oliguric cleared for discharge from renal perspective (2) Cellulitis of right lower extremity Plan: ID following. On Daptomycin, likely will be transitioned to po Clindamycin or Zyvoxx at time of discharge s/p debridement on 07/19 by data governance analyst. Wound vac in place to follow up three times weekly for wound vac change cautious pain control (3) Tobacco abuse Plan: Cessation was advised. on nicotine patch (4) Alcohol abuse Plan: Needs to moderate ETOH habit. has CIWA protocol with Ativan available (5) Essential (primary) hypertension Plan: BP acceptable, he is on Metoprolol with prn clonidine Monitor. adjust medications as needed pain may be contributing to elevated BP readings (6) Bipolar disorder Plan p (Erinn Rios) Plan patient was seen and examined. Renal function has improved. To be discharged today. (Shawn Castelan MD) Erinn Rios Jul 24, 2016 09:59 Shawn Castelan MD Jul 24, 2016 16:03
[2016-07-24] MEDS: MORPHINE SULFATE 4 MG/ML INJ IV PRN (10:38)
[2016-07-24 11:43] VITALS: BP 148/94; PULSE 56; RESP 19; TEMP 97.7; O2SAT 99
--- NOTE | 2016-07-24 14:11 | HHI.PR ---
Subjective Remarks Follow-up foot infection. He is doing okay. Cleared for discharge by podiatry , ID and renal. States he will refrain from drinking alcohol. Discussed with RN Objective Vitals Vital Signs Date Time Temp Pulse Resp B/P Pulse Ox O2 Delivery O2 Flow Rate FiO2 07/24/16 11:43 97.7 56 19 148/94 99 07/24/16 07:50 98.9 67 20 143/81 95 07/24/16 00:00 97.6 64 17 151/97 97 07/23/16 20:00 98.3 69 17 145/97 98 07/23/16 18:12 17 07/23/16 18:01 20 07/23/16 16:00 98.9 59 17 155/83 95 I/O 07/23/16 07/23/16 07/23/16 07/24/16 07/24/16 07/24/16 07:00 15:00 23:00 07:00 15:00 23:00 Intake Total 760 ml 1220 ml 240 ml 240 ml 120 ml Output Total 2020 ml 1200 ml 1000 ml 300 ml Balance -1260 ml 20 ml -760 ml -60 ml 120 ml Intake Oral 760 ml 1120 ml 240 ml 240 ml 120 ml IV Total 0 ml 100 ml 0 ml 0 ml Output Urine Total 2000 ml 1200 ml 1000 ml 300 ml Drainage Total 20 ml 0 ml # Bowel Movements 1 Result Diagram: 07/24/16 0341 Objective Remarks GENERAL: Well developed, well-nourished in no distress SKIN: Warm and dry. HEAD: Atraumatic. Normocephalic. EYES: Pupils equal and round. No scleral icterus. No injection or drainage. ENT: No nasal bleeding or discharge. Mucous membranes pink and moist. NECK: Trachea midline. No JVD. CARDIOVASCULAR: Regular rate and rhythm. RESPIRATORY: No accessory muscle use. Clear to auscultation. Breath sounds equal bilaterally. GASTROINTESTINAL: Abdomen soft, non-tender, nondistended. MUSCULOSKELETAL: Extremities without clubbing, cyanosis, or edema. No obvious deformities. Right foot with wound VAC NEUROLOGICAL: Awake and alert. No obvious cranial nerve deficits. Motor grossly within normal limits. Five out of 5 muscle strength in the arms and legs. Normal speech. Nonfocal PSYCHIATRIC: Appropriate mood and affect; insight and judgment normal. Procedures I&D R foot with wound vac placement A/P Problem List: (1) Abscess of right foot ICD Code: L02.611 Status: Acute (2) Non-compliance ICD Code: Z91.19 Status: Acute (3) Renal insufficiency ICD Code: N28.9 Status: Acute (4) Bipolar disorder ICD Code: F31.9 Status: Chronic (5) Alcohol abuse ICD Code: F10.10 Status: Chronic (6) Tobacco abuse ICD Code: Z72.0 Status: Chronic Assessment and Plan 1. Right Foot Abscess/Infection no osteomyelitis on imaging study: s/p injury w/ abscess/infection, eval by Dr. Valentine s/p I&D 07/16/16. Wound Cultures 07/13 +MRSA and Group A Beta Strep. LEFT AMA prior to surgery planned for . Re-admit, place on IV daptomycin, re-consult ID, re-consult Podiatry. I&D R foot with wound vac placement. Pain management with oxycodone and morphine IV as needed. Improved will be discharged with wound VAC changes Wednesday and Wednesday with home health care RN. Antibiotic switched to clindamycin per ID 2. Non-Compliance: LEFT AMA x3, for leaving to smoke, for not trusting doctors. States he's going to stay this time, however said same thing on previous occasions. 3. Acute kidney injury likely related to vancomycin: Creatinine 1.06 on , increased throughout hospitalization, now 5.30 on 07/17/16. Avoid nephrotoxins. Slowly improving on po hydration refusing IV hydration. Repeat BMP and magnesium 4. Alcohol Abuse: CIWA, Seizure Precautions, MVT/Thiamine/Folate replacement. 5. Tobacco Abuse: Counselled. NicoDerm, Ativan prn. 6. Bipolar Disorder: Not on medications, Ativan prn. 7. Hypertension likely contributed by pain. Continue Lopressor. Continue to monitor with as needed clonidine. DVT Prophylaxis: Ambulatory. Mechanical contraindication due to injury/wound Froy Dasilva MD Jul 24, 2016 14:11
--- NOTE | 2016-07-24 14:14 | HHI.DS ---
Discharge Summary Admission Date Jul 17, 2016 at 19:48 Discharge Date: Jul 24, 2016 Admitting Diagnosis right foot abscess/cellulitis; ROBERTO (1) Abscess of right foot ICD Code: L02.611 Diagnosis: Principal (2) Non-compliance ICD Code: Z91.19 Diagnosis: Principal (3) Renal insufficiency ICD Code: N28.9 Diagnosis: Secondary (4) Bipolar disorder ICD Code: F31.9 Diagnosis: Secondary (5) Alcohol abuse ICD Code: F10.10 Diagnosis: Secondary (6) Tobacco abuse ICD Code: Z72.0 Diagnosis: Secondary Procedures I&D R foot with wound vac placement Brief History - From Admission This is a 45-year-old male with a PMH of Bipolar Disorder, Alcohol Abuse, Tobacco Abuse, Noncompliance and Right Foot Infection who presented to the ER w / complaints of right foot pain. Admitted three times and LEFT AMA each time. Initial admit 07/14/16 for Sepsis from Right Foot Injury/Infection, s/p eval by Dr. Valentine w/ plans for intervention, Wound Cultures 07/13/16 +MRSA and Group A Beta Strep, LEFT AMA. Admitted 07/16/16, s/p eval once again by Dr. Valentine, s/p I&D 07/16/16 however LEFT AMA. Re-admitted again 07/17/16 and LEFT AMA for a third time. Pt reports he went to smoke and they told him he couldn't come back , then on other occasion didn't trust the doctors so he left AMA. States he will stay this time, however stated similar on previous admissions. Spoke w/ Dr. Valentine, plan is for debridement likely Wednesday. CBC/BMP: 07/24/16 0341 Significant Findings Laboratory Tests Test 07/22/16 07/23/16 07/24/16 06:04 03:55 03:41 Chloride Level 110 MEQ/L 110 MEQ/L (98-107) (98-107) Creatinine 3.43 MG/DL 3.08 MG/DL 3.02 MG/DL (0.60-1.30) (0.60-1.30) (0.60-1.30) Estimat Glomerular Filtration 20 ML/MIN (>89) 22 ML/MIN (>89) 23 ML/MIN (>89) Rate Calcium Level 8.1 MG/DL 8.3 MG/DL (8.5-10.1) (8.5-10.1) Potassium Level 3.2 MEQ/L 3.3 MEQ/L (3.5-5.1) (3.5-5.1) Blood Urea Nitrogen 21 MG/DL (7-18) PE at Discharge GENERAL: Well developed, well-nourished in no distress SKIN: Warm and dry. HEAD: Atraumatic. Normocephalic. EYES: Pupils equal and round. No scleral icterus. No injection or drainage. ENT: No nasal bleeding or discharge. Mucous membranes pink and moist. NECK: Trachea midline. No JVD. CARDIOVASCULAR: Regular rate and rhythm. RESPIRATORY: No accessory muscle use. Clear to auscultation. Breath sounds equal bilaterally. GASTROINTESTINAL: Abdomen soft, non-tender, nondistended. MUSCULOSKELETAL: Extremities without clubbing, cyanosis, or edema. No obvious deformities. Right foot with wound VAC NEUROLOGICAL: Awake and alert. No obvious cranial nerve deficits. Motor grossly within normal limits. Five out of 5 muscle strength in the arms and legs. Normal speech. Nonfocal PSYCHIATRIC: Appropriate mood and affect; insight and judgment normal. Hospital Course 1. Right Foot Abscess/Infection no osteomyelitis on imaging study: s/p injury w/ abscess/infection, eval by Dr. Valentine s/p I&D 07/16/16. Wound Cultures 07/13 +MRSA and Group A Beta Strep. LEFT AMA prior to surgery planned for . Re-admit, place on IV daptomycin, re-consult ID, re-consult Podiatry. I&D R foot with wound vac placement. Pain management with oxycodone and morphine IV as needed. Improved will be discharged with wound VAC changes Wednesday and Wednesday with home health care RN. Antibiotic switched to clindamycin per ID 2. Non-Compliance: LEFT AMA x3, for leaving to smoke, for not trusting doctors. States he's going to stay this time, however said same thing on previous occasions. 3. Acute kidney injury likely related to vancomycin: Creatinine 1.06 on , increased throughout hospitalization, now 5.30 on 07/17/16. Avoid nephrotoxins. Slowly improving on po hydration refusing IV hydration. Repeat BMP and magnesium 4. Alcohol Abuse: CIWA, Seizure Precautions, MVT/Thiamine/Folate replacement. 5. Tobacco Abuse: Counselled. NicoDerm, Ativan prn. 6. Bipolar Disorder: Not on medications, Ativan prn. 7. Hypertension likely contributed by pain. Continue Lopressor. Continue to monitor with as needed clonidine. DVT Prophylaxis: Ambulatory. Mechanical contraindication due to injury/wound Pt Condition on Discharge: Stable Discharge Disposition: Disch w/ Home Health Serv Discharge Time: <= 30 minutes Discharge Instructions DIET: Follow Instructions for: As Tolerated, No Restrictions, Heart Healthy Diet Activities you can perform: Regular-No Restrictions Activities to Avoid: Driving Follow up Referrals: PCP Follow-up - 1 Week Podiatry - 1 Week New Orders: BASIC METABOLIC PROF - 07/27/16 New Medications: Clindamycin (Clindamycin) 300 Mg Cap 300 MG PO Q6H Infection #56 Ref 0 CAP Metoprolol Tartrate (Metoprolol Tartrate) 25 Mg Tab 25 MG PO Q12HR Blood Pressure Management #60 TAB Oxycodone (Oxycodone) 10 Mg Tab 10 MG PO Q6HR PRN pain 6-10 #28 TAB Thiamine (Vitamin B-1) 100 Mg Tab 100 MG PO DAILY Alcohol Detox #30 TAB Froy Dasilva MD Jul 24, 2016 14:14
[2016-07-28] MEDS ORDERED: AMLO10TA2 PO (16:35)
[2016-07-28] MEDS ORDERED: CIPR-9 PO (16:45)
== END 2016-07-24 17:22 | disposition home health service (06) | DRG 571 ==
LOC: NEPA 19:03 → NEDA 19:48 → N07B 22:25
PROVIDERS: ADMIT Internal Medicine; ATTEND Internal Medicine
PROC: 2W1SX6Z Compression of Right Foot using Pressure Dressing (ICD-10-PCS; 2016-07-19)
PROC: 0JBQ0ZZ Excision of Right Foot Subcutaneous Tissue and Fascia, Open Approach (ICD-10-PCS; principal; 2016-07-19 08:35)
DX: L02.611 Cutaneous abscess of right foot (principal); N17.9 Acute kidney failure, unspecified; T36.8X5A Adverse effect of other systemic antibiotics, initial encounter; L03.115 Cellulitis of right lower limb; B95.62 Methicillin resistant Staphylococcus aureus infection as the cause of diseases classified elsewhere; B95.0 Streptococcus, group A, as the cause of diseases classified elsewhere; F31.9 Bipolar disorder, unspecified; Z91.19 Patient's noncompliance with other medical treatment and regimen; F10.10 Alcohol abuse, uncomplicated; F17.210 Nicotine dependence, cigarettes, uncomplicated; F12.90 Cannabis use, unspecified, uncomplicated; I10 Essential (primary) hypertension
CPT/HCPCS: 76937; 80048; 80053; 80307; 81001; 82550; 83735; 84100; 85025; 99284; J0878; J2060; J2175; J2250; J2270; J2405; J2543; J3010; J3411; J7030; J7040; J7120